=== PATIENT | male | born 1955 | race Caucasian/White ===

== ENCOUNTER 2023-05-29 06:39 | Observation (INO) ==
--- NOTE | 2023-05-02 11:19 | PAT Medication Instructions ---
Medication Instructions Date of Service May 02, 2023 Home Medications Liposomal Vitamin D 125 mcg PO QAM Nac 1,000 mg PO HS chromium picolinate 200 mcg tablet 200 mcg PO QAM glycine 500 mg capsule 1,000 mg PO QAM hydrochlorothiazide 12.5 mg tablet 12.5 mg PO QAM STOP taking 2 weeks before surgery Liposomal Vitamin D 125 mcg PO QAM Nac 1,000 mg PO HS chromium picolinate 200 mcg tablet 200 mcg PO QAM glycine 500 mg capsule 1,000 mg PO QAM DO NOT take the morning of surgery hydrochlorothiazide 12.5 mg tablet 12.5 mg PO QAM OTHERWISE NOTHING TO EAT OR DRINK AFTER MIDNIGHT ' Other Notes If you have any questions please call us at [phone] or [phone] or [phone] or [phone]
--- NOTE | 2023-05-07 10:22 | Anesthesiology Consultation ---
Date of Service May 07, 2023 Assessment & Plan (1) Encounter for pre-operative examination: Plan - Outpatient joint assessment: Patient is currently scheduled for inpatient pathway. If re-evaluated and patient/surgeon requests outpatient pathway, patient is acceptable candidate for outpatient joint program from anesthesia standpoint pending surgeon's office assessment of pt motivation/support/completion of same day joint program preop requirements. Chart Review Chart Review: Acceptable Risk for Surgery and Patient seen in Pre Admission Testing Teaching & Discussion Pre-Anesthesia Teaching/Discussion Notes: Instructed NPO after midnight before surgery, except medications with 15 cc of water. Medication instructions provided according to the PAT guidelines. History Surgery Operation Date: 05/29/23 07:00 Proposed Procedures p Right Total Knee Arthroplasty - Ben Calle MD Height/Weight Height: 5 ft 11 in Weight: 98.6 kg Allergies Allergy/AdvReac Type Severity Reaction Status Date / Time No Known Allergies Allergy Verified 04/24/23 14:17 Medications Home Medications Medication Instructions Recorded Confirmed Last Taken Liposomal Vitamin D 125 mcg PO QAM 04/24/23 04/24/23 Unknown Nac 1,000 mg PO HS 04/24/23 04/24/23 Unknown chromium picolinate 200 mcg tablet 200 mcg PO QAM 04/24/23 04/24/23 Unknown glycine 500 mg capsule 1,000 mg PO QAM 04/24/23 04/24/23 Unknown hydrochlorothiazide 12.5 mg tablet 12.5 mg PO QAM 04/24/23 04/24/23 Unknown Past Medical History Medical History Disorder of left rotator cuff Hypertension controlled, stable per pt Patient denies h/o stroke, seizures, heart attack, heart failure, DM, blood clots/DVTs or blood transfusions. Exercise / Class Metabolic Activity II 4-5 Yardwork/Stairs/Walk up hill (denies chest discomfort or shortness of breath with 1 FOS) Past Family History Family History Other No family history of adverse response to anesthesia Past Surgical History Surgical History History of colonoscopy History of foot surgery left--tendon repair Past Anesthesia History No Hx of Anesthesia Complications and No Family Hx of Anesthesia Complications History of PONV No Hx of PONV and No Hx of Motion Sickness Social History Smoking Status: Never smoker Do You Dip or Chew Tobacco: No Hx Alcohol Use: Yes (on the weekends) Alcohol type: beer alcohol intake frequency: a few times a week Hx Substance Use: No substance use type: does not use Review of Systems Patient denies chest pain, shortness of breath, dyspnea on exertion, snoring, witnessed apneas, reflux, fever, chills, cough, wheezing, or palpitations. Physical Exam Vital Signs Vitals BP 147/92 P 60 TEMP 98 SP02 97% on RA RESP 18 Physical Patient resting comfortably in chair in no acute distress, alert and oriented, responding appropriately throughout visit Full cervical extension range of motion without pain TMD 3.5 finger breadths Mallampati Score 2 Dentition: intact, denies chipped or loose teeth, caps/crowns, implants or bridges Lungs: normal respiratory effort. Good air movement, clear throughout to auscultation, no adventitious breath sounds Cardiac: regular rate and rhythm, no murmurs noted Carotid arteries: negative bruit bilat Lab Results Anesthesia Preop Results Results Anesthesia Widget: WBC 5.69 K/ul (4.8-10.8) 05/07/23 Hgb 15.9 g/dl (14.0-18.0) 05/07/23 Hct 46.2 % (42.0-52.0) 05/07/23 Plt 222 K/uL (130-400) 05/07/23 Na 139 mmol/L (136-145) 05/07/23 K 4.4 mmol/L (3.5-5.1) 05/07/23 Cl 103 mmol/L (98-107) 05/07/23 CO2 29 mmol/L (21-32) 05/07/23 BUN 16 mg/dl (6-23) 05/07/23 Creat 0.95 mg/dl (0.6-1.4) 05/07/23 Glucose Level 110 mg/dl (70-99(Fasting)) H 05/07/23 PT 10.7 Seconds (9.0-12.0) 05/07/23 PTT 29 Seconds (21-31) 05/07/23 INR 1.0 (0.9-1.1) 05/07/23 Blood Type O Positive 05/07/23 Antibody Screen NEGATIVE 05/07/23 Testing Electrocardiogram Date: 05/07/23 NSR with sinus arrhythmia, rate 65 bpm Rightward axis Chest X-Ray Date: 02/06/23 No acute cardiopulmonary process.
--- NOTE | 2023-05-25 14:20 | History & Physical Report ---
Date of Service May 25, 2023 Assessment & Plan (1) Right knee DJD: 67-year-old gentleman with advanced bilateral knee arthritis. He is failed conservative treatment. He would like to proceed with definitive treatment. Plan: Gino taken to the operating do a right total knee replacement. Cement explained the patient clued but not limited to DVT PE infection neurological injury vascular bleeding palm pain limb range of motion stiffness fairly with symptoms incomplete relief of symptoms excetra. Patient understands and desires to proceed. Informed consent was obtained to. As far as discharge plans he is planned to be discharged home using [facility] home health program. Will use aspirin for DVT prophylaxis. (2) Left knee DJD: History of Present Illness Chief Complaint: . Bilateral knee pain discomfort right side greater than left. Primary Care Provider: NO PCP . The patient is a 67-year-old gentleman from [facility] who presents for management of his knees. Got a long several year history of gradual progressive increased pain discomfort of both knees. He has been through extensive conservative treatment initially provide at [place] and then O IP in [place] as well. He had multiple injections which become less successful over time. He has difficulty walking more than a couple blocks before he is limited by pain. The right knee is bothering more than the left. He now like to consider definitive treatment/knee replacement. Allergies Allergy/AdvReac Type Severity Reaction Status Date / Time No Known Allergies Allergy Verified 04/24/23 14:17 Home Medications Medication Instructions Recorded Confirmed Type Liposomal Vitamin D 125 mcg PO QAM 04/24/23 04/24/23 History Nac 1,000 mg PO HS 04/24/23 04/24/23 History chromium picolinate 200 mcg tablet 200 mcg PO QAM 04/24/23 04/24/23 History glycine 500 mg capsule 1,000 mg PO QAM 04/24/23 04/24/23 History hydrochlorothiazide 12.5 mg tablet 12.5 mg PO QAM 04/24/23 04/24/23 History Past Med/Surg History Medical History Hypertension controlled, stable per pt Disorder of left rotator cuff Surgical History History of colonoscopy History of foot surgery left--tendon repair Family History Other No family history of adverse response to anesthesia Social History Smoking Status: Never smoker Second Hand Exposure: No; Do You Dip or Chew Tobacco: No; Hx Alcohol Use: Yes (on the weekends) Alcohol type: beer Hx Substance Use: No Preferred Language: Spanish Communication Ability: Effective Cemetery Vault Installer Required: No Beliefs That Will Affect Care: None Current Living Situation: Other Current Living Situation Comment: Housemate/friend lives with pt Feels Safe at Home: Yes Assistive Devices: None Review of Systems All systems reviewed & are unremarkable except as noted in HPI & below. Physical Exam . Physical examination was a pleasant middle-age male. Looks in pretty good health. Examination of both knees reveals patient ambulates with a slight bit of a limp. Got varus alignment to both knees. Examination of the right knee reveals a varus alignment. Tender over the medial joint line. Range of motion is about 10 degrees show full extension about 105 degrees of flexion. Pretty stiff knee. A small knee effusion. He is no instability. No pain with hip motion. Examination left knee reveals a similar varus deformity. Small knee effusion. Range of motion about 5-1 10. No instability. No particular pain with hip motion. Constitutional WD/WN, vitals as above Neck trachea midline, no thyromegaly Respiratory normal respiratory effort, lungs clear to auscultation Cardiovascular RRR, no murmur, no edema Results & Data Results & Data Laboratory Results . Diagnostic Findings . X-rays of both knees were reviewed. She is a advanced bilateral knee DJD. 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 The right side looks a little bit more acute than the left. PG Care Time/CCT Total # of Minutes Spent Total Time Spent with Patient: Total time spent is greater than 50% in coordination of care (as documented) at patient's floor/unit and/or counseling patient: Coding Level of Care Code None Diagnoses Right knee DJD M17.11 Left knee DJD M17.12
[~2023-05-29 06:39] MED LIST: ATROPINE SULFATE 0.1 MG/ML 10ML SYR IV PRN; HYDROmorphone INJ 2 MG/ML SYR/VIAL IV PRN; ONDANSETRON INJ 2 MG/ML 2 ML VIAL IV PRN; ePHEDrine sulfate 50 MG/ML AMP IV PRN
[2023-05-29] MEDS ORDERED: BUPIVACAINE 0.5 % 5 MG/1 ML PF 10ML VIAL ONE (06:46)
[2023-05-29] MEDS ORDERED: ROPIVACAINE 0.5% 5 MG/ML 30 ML VIAL ONE (06:47)
--- NOTE | 2023-05-29 06:53 | History & Physical Bridge Note ---
Date of Service May 29, 2023 History & Physical Bridge Note I have examined the patient, reviewed the History & Physical and in the interval since the performance of the History & Physical I have noted the following changes of clinical significance: no changes noted
[2023-05-29] MEDS: ACETAMINOPHEN 500 MG TAB PO SCH ×2 (07:08→13:48)
[2023-05-29] MEDS: METOCLOPRAMIDE HCL 10 MG TABLET PO SCH (07:09)
[2023-05-29] MEDS: dexAMETHasone**PF** 10 MG/ML VIAL IV SCH (07:09)
[2023-05-29] MEDS: FAMOTIDINE 20 MG TAB PO SCH (07:09)
[2023-05-29] MEDS: LR 500ML BOLUS, THEN 15ML/HR IV SCH (07:09)
[2023-05-29] MEDS: CeleBREX 200 MG CAP PO SCH (07:09)
[2023-05-29] MEDS: Scopolamine 1 MG TDSY TD SCH (07:09)
[2023-05-29] MEDS: LR 60ML/HR IV SCH (07:10)
--- OUTSIDE RECORDS SUMMARY | 2023-05-29 08:33 | External Medical Summary | Summary of Care ---
Author Name Unknown Organization [facility] Address [address] [place] [address] Phone [phone] Care Team Providers Care Chemical Research Engineer Name Role Phone Shital Renee MD Primary Care Provider [phone] Encounter Details Date Type Department Care Team (Late st Contact Info) Description 05/28/2023 Orders Only Laboratory, [place] [address] [place] [address] Rita Mejia PA-C [address] [place] [address] Tick bite of abdomen* Allergies Active Allergy Reactions Criticality Noted Date Comments Lisinopril 03/25/2022 Back pain documented as of this encounter (statuses as of 05/29/2023) Medications Medication Sig Dispensed Refills Start Date End Date Status Glycine 500 MG Oral Packet Take 1 Tab by mouth daily. 0 04/18/2019 Active Chromium Picolinate 200 MCG CAPS Take 1 Tab by mouth daily. 0 04/18/2019 Active Multi Adult Gummies Oral Tablet Chewable Take by mouth . 0 04/29/2021 Active Vitamin C 500 MG Oral Tablet Chewable Take 1 Tablet by mouth in the morning. 30 Tablet 5 04/29/2021 Active NAC 500 MG Oral Capsule (Acetylcysteine) Take by mouth 1,000 mg . 0 04/29/2021 Active Clobetasol Propionate 0.05 % External Ointment (Temovate)Indicatio ns:Allergic dermatitis due to other chemical product Apply topically to affected area 2 times a day. To affected area for up to two weeks. 30 g 1 06/23/2022 Active Additional Information Patient not taking.Reported on 08/21/2022 hydroCHLOROthiazide 12.5 MG Oral Tablet (Hydrodiuril) Take 1 Tablet by mouth in the morning. 30 Tablet 5 04/16/2023 Active documented as of this encounter (statuses as of 05/29/2023) Active Problems Problem Noted Date Diagnosed Date Family history of colon cancer 06/22/2022 Overview: father Hypertension 04/29/2021 Family history of heart disease 04/28/2021 Family history of diabetes mellitus 04/28/2021 Sigmoid diverticulosis 05/12/2019 Overview: Colonoscopy 05/12/19 documented as of this encounter (statuses as of 05/29/2023) Resolved Problems Problem Noted Date Diagnosed Date Resolved Date Medial meniscus tear 06/26/2019 021 Overview: left-by MRI Acute iridocyclitis 04/23/19 21 Overview: OS documented as of this encounter (statuses as of 05/29/2023) Immunizations Name Administration Dates Next Due TDAP (age 10 and older)(Boostrix) 12/01/2016 documented as of this encounter Social History Tobacco Use Types Packs/Day Years Used Date Smoking Tobacco: Never Smokeless Tobacco: Never Alcohol Use Standard Drinks/Week Comments Yes 0 (1 standard drink = 0.6 oz pur e alcohol) occasioanl on weekends PHQ-2 Answer Date Recorded PHQ Adult Total Score 0 02/16/2023 Hunger Vital Sign Answer Date Recorded Within the past 12 months, y ou worried that your food would run out before you got the money to buy more. Never true 02/17/20 23 Within the past 12 months, t he food you bought just didn't last and you didn't have money to get more. Never true 02/16/2023 Sex and Gender Information Value Date Recorded Sex Assigned at Male 09/18/2019 11:28 AM EDT Gender Identity Male 09/18/2019 11:28 AM EDT Sexual Orientation Straight 09/18/2019 11 :28 AM EDT Job Start Date Occupation Industry Not on file Not on file Not on file documented as of this encounter Plan of Treatment Upcoming Encounters Date Type Department Care Team (Late st Contact Info) Description 06/29/2023 10:40 AM EDT Office Visit Family Practice, [place] [address] [place] [address] Shital Renee MD [address] [facility] [place] [id number] 07/05/2023 8:15 AM EDT Office Visit Ophthalmology, [place] [address] [place] [address] Pravin Appiah MD [address] [place] [address] Pending Results Name Type Priority Associated Diagnoses Date /Time LYME DISEASE ANTIBODY SCREEN WITH REFLEX TO CONFIRMATION Lab Routine Tick bite of abdomen 05/28/2023 9:24 AM EDT Scheduled Orders Name Type Priority Associated Diagnoses Orde r Schedule LYME DISEASE ANTIBODY SCREEN WITH REFLEX TO CONFIRMATION Lab Routine Tick bite of abdomen Expected: 05/28/2023, Expires: 05/27/2024 Scheduled Procedures Name Priority Associated Diagnoses Date/Ti me COLONOSCOPY FLEXIBLE PROXIMA L DIAGNOSTIC Recall Family history of colon cancer Health Maintenance Due Date Last Done Comments Zoster Vaccines (1 of 2) 2006 Pneumococcal Vaccine: 65+ Years (1 of 1 - PCV) 2021 COVID-19 Vaccine ( - season) 2022 Influenza Vaccine (FLU shot) (Season Ended) 2023 GFR 02/07/2024 02/06/2023, 04/09/2022, 03/03/2022, Additional history exists Depression Screening 02/17/2024 02/16/2023 COLONOSCOPY-EVERY 5 YRS AGES 18-100 05/11/2024 05/12/2019, 05/12/2019 Albumin/Creatinine Ratio 06/23/2025 06/23/2022 Diabetes Screening 02/06/2026 02/06/2023, 0 06/23/2022, 04/29/2021, Additional history exists DTaP,Tdap,and Td Vaccines (2 - Td or Tdap) 12/01/2026 12/01/2016 Lipid Panel 06/24/2027 06/23/2022, 03/0 05/2021, 04/23/2020, Additional history exists GARDASIL-HPV IMMUNIZATION SERIES Aged Out No longer eligible based on patient's age to complete this topic Hepatitis B Aged Out No longer eligi ble based on patient's age to complete this topic MENINGOCOCCAL (MENACTRA/MENVEO) Aged Out No longer eligible based on patient's age to complete this topic documented as of this encounter Medical Devices Not on filedocumented as of this encounter Visit Diagnoses Diagnosis Tick bite of abdomen- Primary Trunk, insect bite, nonvenomous, without mention of infection documented in this encounter Care Teams Chemical Research Engineer Relationship Specialty Start Date End Date Shital Renee MD [address] [place] [id number] PCP - General Family Medicine 06/26/19 documented as of this encounter
--- OUTSIDE RECORDS SUMMARY | 2023-05-29 08:33 | External Medical Summary | Summary of Care ---
Author Name Unknown Organization [facility] Address [address] [place] [address] Phone [phone] Care Team Providers Care College Administrator Name Role Phone Shital Renee MD Primary Care Provider [phone] Reason for Visit * Reason Comments Outpatient Testing Encounter Details Date Type Department Care Team (Late st Contact Info) Description 05/28/2023 3:20 PM EDT Laboratory Laboratory, [place] [address] [facility] [address] [place] [address] [place], [facility] [address] [facility] [address] [place] [address] Tick bite of abdomen Allergies Active Allergy Reactions Criticality Noted Date Comments Lisinopril 03/25/2022 Back pain documented as of this encounter (statuses as of 05/28/2023) Medications Medication Sig Dispensed Refills Start Date [...] as of this encounter (statuses as of 05/28/2023) Active Problems Problem Noted Date Diagnosed Date Family history of colon cancer 06/22/2022 Overview: father Hypertension 04/29/2021 Family history of heart disease 04/28/2021 Family history of diabetes mellitus 04/28/2021 Sigmoid diverticulosis 05/12/2019 Overview: Colonoscopy 05/12/19 documented as of this encounter (statuses as of 05/28/2023) Resolved Problems Problem Noted Date Diagnosed Date Resolved Date Medial meniscus tear 06/26/2019 021 Overview: left-by MRI Acute iridocyclitis 04/23/19 21 Overview: OS documented as of this encounter (statuses as of 05/28/2023) Immunizations Name Administration Dates Next Due TDAP [...] 10:40 AM EDT Office Visit Family Practice, [place] [address] [place] [address] Shital Renee MD [address] [place] [id number] 07/05/2023 8:15 AM EDT Office Visit Ophthalmology, [place] [address] [facility] [place], [place] [id number] Pravin Appiah MD [address] [place] [address] Pending Results Name Type Priority Associated Diagnoses Date /Time LYME DISEASE ANTIBODY SCREEN WITH REFLEX TO CONFIRMATION Lab Routine Tick bite of abdomen 05/28/2023 9:24 AM EDT LYME DISEASE ANTIBODY SCREEN Lab Routine Tick bite of abdomen 05/28/2023 9:24 AM EDT Scheduled Procedures Name Priority Associated Diagnoses Date/Ti me COLONOSCOPY FLEXIBLE PROXIMA L DIAGNOSTIC Recall Family history of colon cancer Health Maintenance Due Date Last Done Comments Zoster Vaccines (1 of 2) 2006 Pneumococcal Vaccine: 65+ Years (1 of 1 - PCV) 2021 COVID-19 Vaccine ( - 2022- season) 2022 Influenza Vaccine (FLU shot) (Season Ended) 2023 GFR 02/07/2024 02/06/2023, 04/2 09/2022, 03/03/2022, Additional history exists Depression Screening 02/17/2024 [...] encounter Visit Diagnoses Diagnosis Tick bite of abdomen Trunk, insect bite, nonvenomous, without mention of infection documented in this encounter Care Teams College Administrator Relationship Specialty Start Date End Date Shital Renee MD [address] [facility] [place] [id number] PCP - General Family Medicine 06/26/19 documented as of this encounter
[2023-05-29] MEDS ORDERED: MIDAZOLAM HCL 1 MG/ML 2ML VIAL ONE (08:48)
[2023-05-29] MEDS ORDERED: fentaNYL citrate PF 100 MCG/2 ML VIAL ONE (08:49)
[2023-05-29] MEDS: ceFAZolin 2000MG 2,000 MG/15 ML SYR IV SCH ×2 (09:32→17:04)
[2023-05-29] MEDS: ORTHO JOINT ANESTHETIC ONE (10:04)
[2023-05-29] MEDS: TRANEXAMIC ACID 1,000 MG **IV Intra-op IV SCH (10:37)
[2023-05-29] MEDS: ROPIV 0.5% 246mg, Ketorolac 30mg, EPINEPHrine 0.5mg in NSS INFIL SCH (10:59)
[2023-05-29] MEDS ORDERED: LIDOCAINE 2% 2 ML VIAL/AMP(20MG/ML) INFIL ONE (11:17)
[2023-05-29] MEDS ORDERED: PROPOFOL IV EMULSION 10 MG/ML 20 ML VIAL IV ONE (11:17)
--- NOTE | 2023-05-29 11:36 | Operative Report ---
PG Post Operative Report Pre & Post Diagnosis Operation Date: 05/29/23 08:50 Pre-Op Diagnosis: Right Knee Degenerative Joint Disease Post-Op Diagnosis: Right Knee Degenerative Joint Disease I identified the patient and participated in the time-out.: Yes Procedure Operation Date: 05/29/23 08:50 Actual Procedures p Right Total Knee Arthroplasty(Right) - Ben Calle MD Surgeon Ben Calle MD School Crossing Guard Supervisor Lucian Ball PA-C Estimated Blood Loss 50 Findings Consistent with Post-Op Diagnosis Operative findings revealed extensive grade 4 yjcw-fa-ejld disease of the anteromedial compartment. Here moderate-sized joint effusion with a slight varus deformity to his knee. Fairly well-preserved lateral compartment. Some moderate degenerative changes in the patellofemoral compartment. Specimens Right knee sent for pathology. Anesthesia Type Spinal MAC Complications none Disposition Accompanied Patient To Recovery: No Indications Patient is a 67-year-old gentleman with a long history of bilateral knee pain and discomfort is gotten worse over time. Is been through extensive conservative treatments became less successful. Pains become more debilitating limiting his activities. X-rays show advanced bilateral knee arthritis. He elects proceed with right total knee arthroplasty. Description of Procedure Operative implants consist of: 1 Biomet Vanguard size 70 right posterior stabilized femoral component. 2. Biomet size 75 tibial tray. 3. 14 mm posterior stabilized polyethylene insert. 4. 31 x 8 all poly patella. The patient was taken the operating, identified, placed on the operating table in the supine position. All contact areas were appropriately padded. IV antibiotic 5 by anesthesia team. A spinal anesthetic and abductor canal block had been provided in the holding area. A right thigh tent was then placed for the right lower extremities then prepped and draped in usual sterile fashion. The right leg was elevated exsanguinated with use of an Esmarch and a turn was placed at 300 mmHg. An anterior approach to the right knee was then performed to longitudinal incision centered over the patella. Sharp dissection was carried through subcutaneous tissue down the extensor mechanism. Medial parapatellar arthrotomy incision was made. Some subperiosteal dissection was carried out medially. The fat pad was resected from Neath patella tendon. The lateral patellofemoral ligament was released. Patella subluxated laterally and the knee was flexed. The osteophyte taken off the distal femur. The ACL and PCL were then released in the distal femur. The tibia subluxated anteriorly. The external treatment line jig was then placed the interface the tibia and adjusted 14 mm medially. Proximal tibial cut was made remove about a millimeter bone from the most deficient aspect medial tibial plateau. Tibia sized to a size 75. Attention drawn the femur. The distal femur was then with a sharp drill. Intramedullary canal was suction. A right 6 degree valgus cutting guide was placed. The distal femoral cutting block was pinned in place. Distal femoral cut was made to take an additional 3 mm of bone off distal femur. The femur was then sized to a size 70. The AP cutting block was pinned parallel to the epicondylar axis which was 3 degrees of external rotation. The anterior cut, anterior chamfer, posterior cut, posterior chamfer cuts were made. The box cutting guide was placed in the just slight lateral and the box cut was made. The knee was flexed. The remnants of the medial and lateral menisci were excised. The osteophytes were taken off the posterior aspect of femur. A trial femoral component was placed. The tibial tray was pinned Maria external rotation and the drill and stem punch used to c reate defect in the proximal tibia for the tibial tray. Knee was then trialed and the 14 mm insert fit most appropriately. Attention drawn the patella. The patella was cleaned of all soft tissues. Patella thickness measured 18 mm in thickness was cut down to 12. Was sized to a size 31 patella. The lug holes were drilled for 31 patella. The lateral osteophyte was removed. Patella button was placed. Knee was taken through range of motion and the patella tracked nicely with no thumbs test. Attention drawn to placing the permanent components. All trial components were removed. Bone plug was placed into the distal femur limit blood loss. A double batch Palacos G cement was mixed. A Biomet Vanguard size 70 right posterior stabilized femoral component, a size 75 tibial tray, a 14 mm posterior stabilized insert, and a 31 x 8 all poly patella then cemented in place. The knee was brought out into full extension till cement hardened. Final cement check was then performed. Pericapsular tissues were injected with total of 100 cc of orthopedic joint mix. The patient did receive 1 g tranexamic acid. The tourniquet was then let down for final tourniquet time was 65 minutes. Hemostasis assured use electrocautery. Extensor Meclomen closed with combination 1 PDS suture #1 Vicryl suture in a [id number]-au-wsdyy fashion. Extensor Meclomen checked found to be intact and subcutaneous tissues then closed with 2 Dexon suture in a buried interrupted fashion skin was closed skin marko. Leg was then cleaned and dried and sterile dressing was Xeroform, 4 fours, sterile cast padding, ABD pad, Brary bandage were applied. The patient was then transferred to the recovery room in stable condition. Patient tolerated the procedure well and there were no complications. Ryan Ball, my physician respiratory equipment assistant, was present for the entire procedure. His assistance was required for proper patient positioning, prepping and draping, surgical exposure, retraction, perform the technical details of the operation, placement of hardware, closure of the incision site and placement of sterile bandage. I attest to the content of the Intraoperative Record and any orders documented therein. Any exceptions are noted below.
--- NOTE | 2023-05-29 11:52 | Anesthesiology Progress Note ---
Date of Service May 29, 2023 Anesthesia Post Procedure Vital Signs Vital Signs: Temp Pulse Resp BP Pulse Ox O2 Del Method 05/29/23 06:55 36.4 C L 101 H 18 132/84 95 Room Air Transfer of Care Handoff Completed per policy Notes Mental Status: alert / awake / arousable and participated in evaluation Nausea / Vomiting: adequately controlled Pain: adequately controlled Airway Patency, RR, SpO2: stable & adequate BP & HR: stable & adequate Hydration State: stable & adequate Neuraxial Anesthesia: was administered and sensory block is resolving Anesthetic Complications: no major complications apparent and Pt Satisfied with anesthetic care
--- NOTE | 2023-05-29 12:23 | XRay Report ---
XR knee RT 1 or 2V routine CLINICAL HISTORY: Postoperative evaluation. COMPARISON: Right knee radiographs April 06, 2023. FINDINGS: Alignment of the total right knee arthroplasty is anatomic. There is no periprosthetic fra cture or unexpected radiopaque foreign body. There are skin marko. IMPRESSION: Expected findings following right knee arthroplasty. ACT 112: Negative or not required by law. Electronically signed by: Garry Robles M.D. 05/29/2023 12:22 PM
[2023-05-29] MEDS ORDERED: ONDANSETRON INJ 2 MG/ML 2 ML VIAL IV PRN (12:25)
[2023-05-29] MEDS ORDERED: bisacodyL 10 MG SUPP PR PRN (12:25)
[2023-05-29] MEDS ORDERED: METOCLOPRAMIDE HCL INJ 5 MG/ML 2 ML VIAL IV PRN (12:25)
[2023-05-29] MEDS ORDERED: HYDROmorphone INJ 0.5 MG/0.5 ML SYR IV PRN (12:25)
[2023-05-29] MEDS ORDERED: MAGNESIUM HYDROXIDE SUSP 30 ML UDC PO PRN (12:25)
[2023-05-29] MEDS ORDERED: NALOXONE HCL 0.4 MG/1 ML VIAL/CARP IV PRN (12:25)
[2023-05-29] MEDS ORDERED: ALUMINUM/MAGNESIUM SUSP 30 ML UDC PO PRN (12:25)
[2023-05-29] MEDS ORDERED: oxyCODONE HCL IR 5 MG TAB (IMMEDIATE RELEASE) PO PRN (12:25)
[2023-05-29] MEDS: KETOROLAC TROMETHAMINE 15 MG/ML VIAL IV SCH (13:48)
[2023-05-29] MEDS: SODIUM CHLORIDE 0.9% 1,000 ML IV SCH (13:48)
[2023-05-29] MEDS: ASCORBIC ACID 500 MG TAB PO SCH (17:03)
[2023-05-29] MEDS: TRANEXAMIC ACID / 0.7% NACL 1,000 MG/100 ML BAG IV SCH (17:03)
[2023-05-29] MEDS: Scopolamine CHECK PATCH PLACEMENT SCH (17:21)
[2023-05-29] MEDS ORDERED: NAC PO SCH (21:00)
[2023-05-29] MEDS ORDERED: SENNA 8.6 MG TAB PO SCH (21:00)
[2023-05-29] MEDS: SENNA 8.6 MG TAB PO SCH (21:14)
[2023-05-29] MEDS: ASPIRIN 81 MG ECTAB PO SCH (21:14)
[2023-05-29] MEDS: DOCUSATE SODIUM 100 MG CAP PO SCH (21:14)
[2023-05-30 06:22] LABS: Hematocrit (blood only) 36.2 % (42.0-52.0); Hemoglobin 12.6 g/dl (14.0-18.0); Mean Corpuscular Hemoglobin 32.9 pg (25.0-34.0); Mean Corpuscular Hgb Conc 34.8 g/dL (32.0-36.0); Mean Corpuscular Volume 94.5 fL (80.0-100.0); Mean Platelet Volume 9.7 fL (9.4-12.4); Platelet Count 187 K/uL (130-400); RDW Coefficient of Variation 13.2 % (11.5-14.5); RDW Standard Deviation 45.7 fL (36.4-46.3); Red Blood Count 3.83 M/uL (4.70-6.10); White Blood Count 11.35 K/ul (4.8-10.8)
--- OUTSIDE RECORDS SUMMARY | 2023-05-30 06:27 | External Medical Summary ---
Author Name Unknown Address Unknown Organization [id number]:LABORATORY [facility] [place] - [facility] [address] [place] [address] Laboratory Report Ordering Provider Test Date Status LEOLA KRAMER 05/28/2023 09:24:00 Final Observation Date Value Abnormality Reference (Units ) Status Borrelia burgdorferi IgG and IgM [Interpretation] in Serum by Immunoassay 05/28/2023 09:24:00 Negative Negative Final Performing Location LAB[facility]ATORY [facility] - [address] [facility] [place] [address]
--- OUTSIDE RECORDS SUMMARY | 2023-05-30 06:27 | External Medical Summary | Summary of Care ---
Author Name Unknown Organization [facility] Address [address] [place] [address] Phone [phone] Care Team Providers Care Security Assurance Analyst Name Role Phone Shital Renee MD Primary Care Provider [phone] Encounter Details Date Type Department Care Team (Late st Contact Info) Description 05/29/2023 Telephone [facility] [address] [place] [id number] Sallie Polk PA-C [address] [place] [address] Allergies Active Allergy Reactions Criticality Noted Date [...] 06/29/2023 10:40 AM EDT Office Visit Family [facility], [place] [address] [address] Shital Renee MD [address] [address] 07/05/2023 8:15 AM EDT Office Visit Ophthalmology, [place] [address] [address] Pravin Appiah MD [address] [facility] [place] [address] Scheduled Procedures Name Priority Associated Diagnoses Date/Ti me COLONOSCOPY FLEXIBLE PROXIMA L DIAGNOSTIC Recall Family history of colon cancer Health Maintenance Due Date Last Done Comments Zoster Vaccines (1 of 2) 2006 Pneumococcal Vaccine: 65+ Years (1 of 1 - PCV) 2021 COVID-19 Vaccine ( - 2022- season) 2022 Influenza Vaccine (FLU shot) (Season Ended) 2023 GFR 02/07/2024 02/06/2023, 05/28, 03/03/2022, Additional history exists Depression Screening 02/17/2024 [...] Not on filedocumented as of this encounter Care Teams Security Assurance Analyst Relationship Specialty Start Date End Date Shital Renee MD [address] [place] [address] PCP - General Family Medicine 06/26/19 documented as of this encounter
--- OUTSIDE RECORDS SUMMARY | 2023-05-30 06:27 | External Medical Summary | Summary of Care ---
Author Name Unknown Organization [facility] Address [address] [place] [address] Phone [phone] Care Team Providers Care Sound Equipment Mechanic Name Role Phone Shital Renee MD Primary Care Provider [phone] Reason for Visit * Reason Comments Outpatient Testing Encounter Details Date Type Department Care Team (Late st Contact Info) Description 05/28/2023 3:20 PM EDT Laboratory Laboratory, [place] [address] [facility] [address] [place] [address] [place], [facility] [address] [facility] [address] [place] [address] Tick bite of abdomen Allergies Active Allergy [...] 10:40 AM EDT Office Visit Family Practice, [place] [address] [place] [address] Shital Renee MD [address] [facility] [place] [phone] 07/05/2023 8:15 AM EDT Office Visit Ophthalmology, [place] [address] [facility] [place] [address] Pravin Appiah MD [address] [facility] [place], [place] [id number] Scheduled Procedures Name Priority Associated Diagnoses Date/Ti [...] Not on filedocumented as of this encounter Procedures Procedure Name Priority Date/Time Associated Diagnosis Comments LYME DISEASE ANTIBODY SCREEN Routine 05/28/2023 9:24 AM EDT Tick bite of abdomen LYME DISEASE ANTIBODY SCREEN WITH REFLEX TO CONFIRMATION Routine 05/28/2023 9:24 AM EDT Tick bite of abdomen documented in this encounter Results * LYME DISEASE ANTIBODY SCREEN (05/28/2023 9:24 AM EDT) Lyme Disease Antibody Screen Negative Negative 05/29/2023 9:21 AM EDT [facility] Blood Venous blood specimen / Unknown Venipuncture / Unknown 05/28/2023 9:24 AM EDT 05/28/2023 11:09 AM EDT Rita Mejia PA-C LAB BLOOD O [facility]DER[facility]LES [facility] [address] [place] [address] documented in this encounter Visit Diagnoses Diagnosis Tick bite of abdomen Trunk, insect bite, nonvenomous, without mention of infection documented in this encounter Care Teams Sound Equipment Mechanic Relationship Specialty Start Date End Date Shital Renee MD [address] [place] [address] PCP - General Family Medicine 06/26/19 documented as of this encounter
[2023-05-30 06:29] LABS: BUN Creatinine Ratio 23.1 (10-20); Calcium 8.2 mg/dl (8.6-10.3); Est GFR (African American) 86.3 ml/min; Est GFR (Non-African American) 74.5 ml/min; Potassium 3.7 mmol/L (3.5-5.1)
[2023-05-30] MEDS: TAMSULOSIN HCL 0.4 MG CAP PO SCH (08:24)
[2023-05-30] MEDS: MULTIVITAMIN TAB PO SCH (08:24)
[2023-05-30] MEDS: CHOLECALCIFEROL 125 MCG (5,000 UNITS) TAB PO SCH (08:24)
[2023-05-30] MEDS: hydroCHLOROthiazide 25 MG TAB PO SCH (08:25)
[2023-05-30] MEDS: dexAMETHasone 10 MG in SYRINGE 0 ML IV SCH (08:27)
--- NOTE | 2023-05-30 08:42 | Surgery Progress Note ---
Date of Service May 30, 2023 Assessment & Plan (1) Status post right knee replacement: Plan: 67-year-old gentleman postop day 1 from right knee replacement doing pretty well. Pains are reasonably well-controlled. No chest pain or shortness of breath. He is neurologically intact. Just waiting to do therapy. He is open to go home today. Plan: 1. DVT prophylaxis including thigh-high teds, SCDs, aspirin twice a day. 2. PT/OT. Weight-bear as tolerated. Right total knee protocol. 3. Pain control. Doing reasonably well without pain meds. Some quad discomfort which is to be expected. 4. Disposition. Plan is to discharge him to home if he does okay in therapy today. He is can have home health. Will follow-up in clinic in 2 weeks. Admission and Anticipated Discharge Date Admission Date: May 29, 2023 Subjective 67-year-old gentleman postop day 1 from right knee replacement. He is doing pretty well. Describes an good bit of quad soreness and that is about it. No chest pain or shortness of breath. Not feeling dizzy or lightheaded. Physical Exam Physical Exam: Physical examination was a pleasant middle-age male. He is sitting up in bed looks quite comfortable. Examination of the right leg reveals the leg to be well aligned. Dressings clean dry and intact. He can dorsiflex and plantarflex his foot appropriately. He can do a pretty good straight leg raise. Respiratory: normal respiratory effort, lungs clear to auscultation Cardiovascular: RRR, no murmur, no edema Gastrointestinal (Abdomen): normal bowel sounds, soft, nontender, no hepatosplenomegaly Results & Data Vital Signs (Past 12 Hours) Vital Signs Temp Pulse Resp BP Pulse Ox O2 Del Method 05/30/23 07:26 36.4 C L 72 16 119/68 95 Room Air 05/30/23 03:33 36.6 C 65 16 126/73 94 Room Air 05/29/23 22:58 36.6 C 54 L 16 138/78 96 Room Air Laboratory Results Hemoglobin is 12.6. Hematocrit is 36.2. Electrolytes are stable. PG Care Time/CCT Total # of Minutes Spent Total Time Spent with Patient: Total time spent is greater than 50% in coordination of care (as documented) at patient's floor/unit and/or counseling patient: Coding Level of Care Code 95044 Post Operative Follow-Up Diagnoses Status post right knee replacement Z96.651
[2023-05-30] MEDS ORDERED: GLYCINE PO SCH (09:00)
[2023-05-30] MEDS ORDERED: NON-FORMULARY MEDICATION (Chromium Picolinate 200 mcg Tablet) PO SCH (09:00)
--- NOTE | 2023-05-30 09:54 | Discharge Summary ---
Date of Service May 30, 2023 Admission HPI (Per Admitting) . The patient is a 67-year-old gentleman from [facility] who presents for management of his knees. Got a long several year history of gradual progressive increased pain discomfort of both knees. He has been through extensive conservative treatment initially provide at [place] and then O IP in [place] as well. He had multiple injections which become less successful over time. He has difficulty walking more than a couple blocks before he is limited by pain. The right knee is bothering more than the left. He now like to consider definitive treatment/knee replacement. Admission Exam (Per Admitting) . Physical examination was a pleasant middle-age male. Looks in pretty good health. Examination of both knees reveals patient ambulates with a slight bit of a limp. Got varus alignment to both knees. Examination of the right knee reveals a varus alignment. Tender over the medial joint line. Range of motion is about 10 degrees show full extension about 105 degrees of flexion. Pretty stiff knee. A small knee effusion. He is no instability. No pain with hip motion. Examination left knee reveals a similar varus deformity. Small knee effusion. Range of motion about 5-1 10. No instability. No particular pain with hip motion. Principal Diagnosis Same as "Discharge Diagnosis" noted below under Discharge Instructions. Discharge Exam Physical Exam: Physical examination was a pleasant middle-age male. He is sitting up in bed looks quite comfortable. Examination of the right leg reveals the leg to be well aligned. Dressings clean dry and intact. He can dorsiflex and plantarflex his foot appropriately. He can do a pretty good straight leg raise. Respiratory: normal respiratory effort, lungs clear to auscultation Cardiovascular: RRR, no murmur, no edema Gastrointestinal (Abdomen): normal bowel sounds, soft, nontender, no hepatosplenomegaly Discharge Data Procedures Performed Operation Date: 05/29/23 08:50 Actual Procedures p Right Total Knee Arthroplasty(Right) - Ben Calle MD Ordered Studies 05/29/23 05:00 US - OR guided needle placemen Routine Hospital Course (1) Status post right knee replacement: On May 29, 2023 Endy arrived at [facility] and underwent a right total knee arthroplasty performed by Dr. Calle with no complications. He had a spinal anesthetic. Postoperatively, he was started on aspirin for DVT prophylaxis and transferred to the general orthopedic floor in stable condition. His hospital course was uneventful. On postoperative day #1, his vital signs were stable and his pain was well-controlled. He participated well with physical therapy working on ambulation and range of motion exercises. He was then discharged home in stable condition. He will follow-up with Dr. Calle in 2 weeks for postoperative management. PG Care Time/CCT Total # of Minutes Spent Total Time Spent with Patient: Total time spent is greater than 50% in coordination of care (as documented) at patient's floor/unit and/or counseling patient: Discharge Plan Discharge Items Patient Disposition: Home - Home Health Services Reason For Visit: Right Knee Degenerative Joint Disease Discharge Diagnosis: Right Knee Replacement Activity: Per Instructions section Weightbearing: Full weightbearing Non-emergency contact: Surgeon Call non-emergency contact if: you have any medication questions Follow-up/Referrals: Shital Renee MD [Primary Care Provider] - Diet: Regular Addtl Attending Provider Instructions: ACTIVITY RECOMMENDATIONS: Physical Therapy: * You will go to physical therapy three times each week for four to six weeks after your surgery in order to regain your knee range of motion and to retrain your knee to work properly. * It is just as important to make sure you are getting your knee perfectly straight as it is to regain your knee bend. * Taking a pain pill an hour before therapy can help you have a more productive and comfortable therapy session. Home Exercise: * You were shown a series of exercises (heel props, heel slides, etc.) in the hospital. Do these exercises three to four times each day including the exercises you were shown in physical therapy. Walking: * Get up and walk several times each day. For the first four weeks, try not to stand or walk for more than one hour at a time. If you do stand or walk for more than one hour, you will not hurt anything, but your knee and leg will likely swell. * As you feel comfortable, you may change from the walker or crutches to a cane and then to independent walking. MEDICATIONS: New Medicine: * You will likely be taking one or more of these medications: 1. Oxycodone - A quick and shorter-acting pain medication. Take one to two tablets every six hours to lessen your pain. 2. Aspirin - Thins your blood to lessen the chance of forming a blood clot. * The most common side effects of pain medicine and iron are nausea and constipation. If nausea or constipation is too much of a problem or if you have any questions about your new medicines or doses, call [facility] at . We will try to help you manage these issues. "VERY IMPORTANT TO READ AND REVIEW" Pain: * The immediate post-operative period after knee replacement surgery is often quite painful. * You are given a prescription for pain medicine. You should take it, as directed, when you need it, especially before physical therapy and before going to bed. Pain that interferes with sleep is very common and can last several months. * You will likely need pain medicine for the first four to six weeks. It will not stop all of the pain. The pain will lessen and as you feel better, you may change to milder pain medicine such as Tylenol. * The most common side effects of pain medicine are nausea and constipation, so don't take more than you need. SPECIAL CARE INSTRUCTIONS: TEDs/Elastic Stockings: * The white elastic stockings help limit swelling and prevent blood clots from forming in your legs. The more you wear them, the more they work. * Wear them for six weeks after knee replacement surgery and four weeks after partial knee replacement. Incision Site Care: * Remove dressing postoperative day 2 and then shower. Keep direct shower pressure off the incision site. * After showering, cover marko with dry gauze and change daily or more frequently if the dressing is getting saturated with drainage. * Use the ENEIDA stockings to hold dressing in place. DO NOT apply tape on the skin. * May completely stop using bandage if wound is dry and no drainage * Marko are removed between 2 and 3 weeks post-op. If your follow-up appointment is made before 2 weeks, please have your appointment re- scheduled. It is too early to remove the marko. Prevention of Infection: * Take antibiotics one hour before any dental cleaning, dental work, urological procedure, gastrointestinal procedure or any invasive surgery in order to prevent your new joint from getting infected. * You may get the antibiotics from the doctor performing the procedure or you may call our office at [phone] before and we will call in a prescription to the pharmacy of your choice. Things to Watch For: * Drainage from the incision site that occurs more than one week after your surgery. * Severely increased knee/leg pain or swelling. * Increased redness at the incision site. * Fever above 102 degrees Fahrenheit. * Unusual chest pain or shortness of breath. * Unusual pain or burning with urination. Call [facility] at [phone] with any of the above problems or if you have any questions about your medicines or recovery. FOLLOW UP VISIT: Make an appointment to see your doctor for approximately two weeks after surgery for a progress check and staple removal by calling the office at [phone]. Pending Studies at Discharge: No Stand-Alone Forms: My [facility] [id number], Smoking Cessation Medications and DC Order Prescriptions: Continued oxycodone 5 mg tablet 5 - 10 mg PO Q6 PRN (Reason: pain) Qty: 40 0RF Rx Instructions: Take as needed for pain ondansetron 4 mg tablet,disintegrating 4 mg PO Q8 PRN (Reason: nausea) Qty: 20 1RF Rx Instructions: Take as needed for nausea ketorolac 10 mg tablet 10 mg PO Q6 5 Days Qty: 20 0RF Rx Instructions: Take 4 times per day with food for 5 days to lessen pain and swelling. sennosides [Senokot] 8.6 mg tablet 8.6 mg PO BID 14 Days Qty: 28 0RF Rx Instructions: Take two times a day to prevent/treat constipation acetaminophen [Tylenol Extra Strength] 500 mg tablet 1,000 mg PO TID 30 Days Qty: 180 0RF Rx Instructions: Take 3 times per day to lessen pain. aspirin [Lorenza Low Dose Aspirin] 81 mg tablet,delayed release (DR/EC) 81 mg PO BID 45 Days Qty: 90 0RF Rx Instructions: Take to prevent blood clots. cefadroxil 500 mg capsule 500 mg PO BID 7 Days Qty: 14 0RF Rx Instructions: Take 1 cap twice a day to prevent infection tamsulosin [Flomax] 0.4 mg capsule 0.4 mg PO DAILY Qty: 7 0RF Rx Instructions: Begin night BEFORE surgery to prevent urinary retention (DME) Wheeled Walker Misc See Rx Instructions .MEDSUPPLY Qty: 1 0RF Rx Instructions: As directed hydrochlorothiazide 12.5 mg Tablet 12.5 mg PO QAM Nac 1,000 mg PO HS chromium picolinate 200 mcg Tablet 200 mcg PO QAM glycine 500 mg Capsule 1,000 mg PO QAM Liposomal Vitamin D 125 mcg PO QAM Admission Data Admit Date/Time: 05/29/23 11:34 Attending Provider: Ben Calle Admit Provider: Ben Calle Primary Care Provider: Shital Renee Other Providers: [facility]
== END 2023-05-30 11:32 | disposition home health service (06) ==
LOC: ASU 06:39 → 3E 06:39

== ENCOUNTER 2023-11-27 06:24 | Observation (INO) ==
--- NOTE | 2023-11-14 11:57 | Anesthesiology Consultation ---
Date of Service November 14, 2023 Assessment & Plan Chart Review Chart Review: Acceptable Risk for Surgery Consults Requested none History Surgery Operation Date: 11/27/23 10:40 Proposed Procedures p Left Total Knee Arthroplasty - Ben Calle MD Height/Weight Height: 5 ft 11 in Weight: 98.883 kg Allergies Allergy/AdvReac Type Severity Reaction Status Date / Time No Known Allergies Allergy Verified 11/13/23 09:30 Medications Home Medications Medication Instructions Recorded Confirmed Last Taken Liposomal Vitamin D 250 mcg PO QAM 04/24/23 11/13/23 05/15/23 08:00 Nac 1,000 mg PO HS 04/24/23 11/13/23 Unknown chromium picolinate 200 mcg tablet 200 mcg PO QAM 04/24/23 11/13/23 05/15/23 08:00 glycine 500 mg capsule 1,000 mg PO QAM 04/24/23 11/13/23 05/15/23 08:00 hydrochlorothiazide 12.5 mg tablet 12.5 mg PO QAM 04/24/23 11/13/23 05/28/23 05:00 Wheeled Walker #1 ea 05/28/23 05/29/23 Unknown aspirin 81 mg tablet,delayed 81 mg PO QAM 11/13/23 11/13/23 Unknown release (Lorenza Low Dose Aspirin) Past Medical History Medical History Hypertension controlled, stable per pt Past Family History Family History Other No family history of adverse response to anesthesia Past Surgical History Surgical History (Updated 11/13/23 @ 09:38 by Lobito Stroud RN) History of total right knee replacement (05/2023) History of colonoscopy History of foot surgery left--tendon repair Social History Smoking Status: Never smoker Do You Dip or Chew Tobacco: No Hx Alcohol Use: Yes (on the weekends) Alcohol type: beer alcohol intake frequency: a few times a week Hx Substance Use: No substance use type: does not use
--- NOTE | 2023-11-24 08:57 | History & Physical Report ---
Date of Service November 24, 2023 Assessment & Plan (1) Left knee DJD: 68-year-old gentleman now 6 months out from a right knee replacement with advanced left knee DJD. Is failed conservative measures. He is happy with his right knee and would like to have his left knee replaced. Plan: Gino taken the operating room and do a left total knee replacement but the risks Mente this procedure once again explained and he understands. He desires to proceed. He is hoping to have home health come in for the first 2 weeks. After that he thinks he can do therapy on his own as he wants to save the cost. Will use aspirin for DVT prophylaxis. He does admit himself that he is friends around they can help him and he did so last time he did fine. Will follow back with me. Postop. (2) Status post right knee replacement: History of Present Illness Chief Complaint: . Persistent, progressive left knee pain and discomfort. Primary Care Provider: Shital Renee MD . The patient is a 68-year-old gentleman whose had a long history of bilateral knee problems and knee pain. He is now 6 months out from a right knee replacement which was done well. He continues to be bothered by left knee pain and discomfort and stiffness. He has been through extensive conservative treatment for his knee arthritis that [facility] and [place] in the past. Conservative care has become less successful over time. His right knee is doing well. He is now like to proceed with left knee replacement. Allergies Allergy/AdvReac Type Severity Reaction Status Date / Time No Known Allergies Allergy Verified 11/13/23 09:30 Home Medications Medication Instructions Recorded Confirmed Type Liposomal Vitamin D 250 mcg PO QAM 04/24/23 11/13/23 History Nac 1,000 mg PO HS 04/24/23 11/13/23 History chromium picolinate 200 mcg tablet 200 mcg PO QAM 04/24/23 11/13/23 History glycine 500 mg capsule 1,000 mg PO QAM 04/24/23 11/13/23 History hydrochlorothiazide 12.5 mg tablet 12.5 mg PO QAM 04/24/23 11/13/23 History Wheeled Walker #1 ea 05/28/23 05/29/23 Rx aspirin 81 mg tablet,delayed 81 mg PO QAM 11/13/23 11/13/23 History release (Lorenza Low Dose Aspirin) Past Med/Surg History Problem List Status post right knee replacement Effusion, left knee Disorder of left rotator cuff Left knee DJD Medical History Hypertension controlled, stable per pt Surgical History History of total right knee replacement (05/2023) History of colonoscopy History of foot surgery left--tendon repair Family History Other No family history of adverse response to anesthesia Social History Smoking Status: Never smoker Second Hand Exposure: No; Do You Dip or Chew Tobacco: No; Hx Alcohol Use: Yes (on the weekends) Alcohol type: beer Hx Substance Use: No Preferred Language: Belarusian Communication Ability: Effective Director Of Institutional Sales Required: No Beliefs That Will Affect Care: None Current Living Situation: Alone Current Living Situation Comment: Housemate/friend lives with pt Feels Safe at Home: Yes Assistive Devices: None Review of Systems All systems reviewed & are unremarkable except as noted in HPI & below. Physical Exam . Physical examination reveals a pleasant middle-aged male. Looks to be in excellent health. Examination of the left knee reveals slight varus alignment. He is tender with medial joint line. Small knee effusion. Range of motion ab out 5 degrees short of full extension to 105 degrees of flexion. No particular pain with hip motion. No instability. Examination of the right knee reveals a well-healed incision. He is got anatomi c alignment to his knee. Range of motion 0-1 25. Constitutional WD/WN, vitals as above Neck trachea midline, no thyromegaly Respiratory normal respiratory effort, lungs clear to auscultation Cardiovascular RRR, no murmur, no edema Gastrointestinal (Abdomen) normal bowel sounds, soft, nontender, no hepatosplenomegaly Results & Data Results & Data Laboratory Results . Diagnostic Findings . X-rays of the left knee were reviewed. Shows advanced left knee DJD. He is got complete loss of medial joint space. 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 PG Care Time/CCT Total # of Minutes Spent Total Time Spent with Patient: Total time spent is greater than 50% in coordination of care (as documented) at patient's floor/unit and/or counseling patient: Coding Level of Care Code None Diagnoses Left knee DJD M17.12 Status post right knee replacement Z96.651
[2023-11-27] MEDS ORDERED: ROPIVACAINE 0.5% 5 MG/ML 30 ML VIAL ONE (06:29)
--- NOTE | 2023-11-27 06:41 | History & Physical Bridge Note ---
Date of Service November 27, 2023 History & Physical Bridge Note I have examined the patient, reviewed the History & Physical and in the interval since the performance of the History & Physical I have noted the following changes of clinical significance: no changes noted
[2023-11-27] MEDS: LR 500ML BOLUS, THEN 15ML/HR IV SCH (06:45)
[2023-11-27] MEDS: dexAMETHasone**PF** 10 MG/ML VIAL ONE (06:56)
[2023-11-27] MEDS: LR 60ML/HR IV SCH (06:56)
[2023-11-27] MEDS: CeleBREX 200 MG CAP PO SCH (07:10)
[2023-11-27] MEDS: ACETAMINOPHEN 500 MG TAB PO SCH ×2 (07:10→13:53)
[2023-11-27] MEDS: FAMOTIDINE 20 MG TAB PO SCH (07:10)
[2023-11-27] MEDS: METOCLOPRAMIDE HCL 10 MG TABLET PO SCH (07:10)
[2023-11-27] MEDS: DEXAMETHASONE SOD INJ 4 MG/ML VIAL IV STA (07:14)
[2023-11-27] MEDS ORDERED: fentaNYL citrate PF 100 MCG/2 ML VIAL ONE (07:25)
[2023-11-27] MEDS ORDERED: fentaNYL citrate PF 100 MCG/2 ML VIAL IV PRN (07:26)
[2023-11-27] MEDS ORDERED: HYDROmorphone INJ 1 MG/ML SYRINGE IV PRN (07:26)
[2023-11-27] MEDS ORDERED: MIDAZOLAM HCL 1 MG/ML 2ML VIAL ONE (07:26)
[2023-11-27] MEDS ORDERED: ATROPINE SULFATE 0.1 MG/ML 10ML SYR IV PRN (07:26)
[2023-11-27] MEDS ORDERED: ONDANSETRON INJ 2 MG/ML 2 ML VIAL IV PRN ×2 (07:26→11:26)
[2023-11-27] MEDS ORDERED: ePHEDrine sulfate 50 MG/ML AMP IV PRN (07:26)
[2023-11-27] MEDS: ceFAZolin 2000MG 2,000 MG/15 ML SYR IV SCH ×2 (08:39→16:56)
[2023-11-27] MEDS ORDERED: PROPOFOL IV EMULSION 10 MG/ML 20 ML VIAL IV ONE (09:16)
[2023-11-27] MEDS ORDERED: LIDOCAINE 2% 2 ML VIAL/AMP(20MG/ML) INFIL ONE (09:16)
[2023-11-27] MEDS: ORTHO JOINT ANESTHETIC ONE (09:26)
[2023-11-27] MEDS: ROPIV 0.5% 246mg, Ketorolac 30mg, EPINEPHrine 0.5mg in NSS INFIL SCH (09:26)
[2023-11-27] MEDS: TRANEXAMIC ACID 1,000 MG **IV Intra-op IV SCH (09:30)
--- OUTSIDE RECORDS SUMMARY | 2023-11-27 09:58 | External Medical Summary | Summary of Care ---
Author Name Unknown Organization [facility] Address [address] [place] [address] Phone [phone] Care Team Providers Care Cold Mill Operator Name Role Phone Shital Renee MD Primary Care Provider [phone] Reason for Visit * Reason Onset Date Comments Health Maintenance 11/12/2023 Encounter Details Date Type Department Care Team (Late st Contact Info) Description 11/12/2023 Telephone [facility] [address] [place] [address] Shital Renee MD [address] [place] [address] Health Maintenance Allergies Active Allergy Reactions Criticality Noted Date Comments Lisinopril 03/25/2022 Back pain documented as of this encounter (statuses as of 11/12/2023) Medications Medication Sig Dispensed Refills Start Date End Date Status Glycine 500 MG Oral Packet Take 1 Tab by mouth daily. 04/18/2019 Active Chromium Picolinate 200 MCG CAPS Take 1 Tab by mouth daily. 04/18/2019 Active Multi Adult Gummies Oral Tablet Chewable Take by mouth. 04/29/2021 Active NAC 500 MG Oral Capsule (Acetylcysteine) Take by mouth 1,000 mg . 04/29/2021 Active hydroCHLOROthiazide 12.5 MG Oral Tablet TAKE ONE TABLET BY MOUTH EVERY MORNING 30 Tablet 5 09/19/2023 Active documented as of this encounter (statuses as of 11/12/2023) Active Problems Problem Noted Date Diagnosed Date Family history of colon cancer 06/22/2022 Overview: father Hypertension 04/29/2021 Family history of heart disease 04/28/2021 Family history of diabetes mellitus 04/28/2021 Sigmoid diverticulosis 05/12/2019 Overview: Colonoscopy 05/12/19 documented as of this encounter (statuses as of 11/12/2023) Resolved Problems Problem Noted Date Diagnosed Date Resolved Date Medial meniscus tear 06/26/2019 021 Overview: left-by MRI Acute iridocyclitis 04/23/19 21 Overview: OS documented as of this encounter (statuses as of 11/12/2023) Immunizations Name Administration Dates Next Due TDAP [...] money to get more. Never true 02/16/2023 Childcare Answer Date Recorded Do you feel overwhelmed with taking care of a child, family member or friend? No 02/16/2023 Does your family need help f inding childcare? (Household - for ages 0-17 years) Not on file 02/16/2023 Clothing Answer Date Recorded Have you been unable to get clothing when it was really needed? No 02/16/2023 Is your family able to get c lothes or diapers when needed? (Household - for ages 0-17 years) Not on file 02/16/2023 Personal Safety Answer Date Recorded Do you feel unsafe or have concerns for your saf ety? No 02/16/2023 Do you have concerns for you r family's safety? (Household - for ages 0-17 years) Not on file 02/16/2023 Utilities Answer Date Recorded Do you have trouble paying y our heating, water, or electric bill? No 02/16/2023 Is your family able to pay t he heat, water, or electric bill? (Household - for ages 0-17 years) Not on file 02/16/2023 Does your family have access to good internet? (Household - for ages 0-17 years) Not on file 02/16/2023 Employment Status Answer Date Recorded Are you unemployed or without regular income? No 02/16/2023 Does the household have a re gular source of income? (Household - for ages 0-17 years) Not on file 02/16/2023 Social Connections Answer Date Recorded How often do you feel lonely or isolated from th ose around you? Never 02/16/2023 Financial Resource Strain Answer Date R ecorded Do you have any trouble payi ng for your medications, or do you think you might in the future? No 02/16/2023 Does your family have troubl e paying for medicine? (Household - for ages 0-17 years) Not on file 02/16/2023 Transportation Needs Answer Date Record ed READ ONLY Do you have troubl e getting a ride to medical visits or work? Never True 02/16/2023 Does your family have a hard time getting a ride to doctors visits? (Household - for ages 0-17 years) Not on file 02/16/2023 Has lack of transportation k ept you from medical appointments, meetings, work, or from getting things needed for daily living? Check all that apply. (Adult - for ages 18 years and over) Not on file 02/16/2023 Do you (or your family) have trouble finding or paying for a ride (transportation)? (Household - for ages 0-17 years) Not on file 02/16/2023 Housing Stability Answer Date Recorded Do you currently live in a s helter or have no steady place to sleep at night? No 02/16/2023 READ ONLY Do you think you a re at risk of becoming homeless? No 02/16/2023 Does your family worry about paying for your home or becoming homeless? (Household - for ages 0-17 years) Not on file 1 04/19/2022 Are you homeless or worried that you might be in the future? (Adult - for ages 18 years and over) Not on file 3 Are you (or your family) sesar eless or worried that you might be in the future? (Household - for ages 0-17 years) Not on file Food Insecurity Answer Date Recorded Do you need food for this week? No 02/16/2023 Are you able to get enough f ood for your family? (Household - for ages 0-17 years) Not on file 02/16/2023 Does your family need food t his week? (Household - for ages 0-17 years) Not on file 02/16/2023 Do you always have enough fo od for your family? (Household - for ages 0-17 years) Not on file 02/16/2023 Sex and Gender Information Value Date Recorded Sex Assigned at Male 09/18/2019 11:28 AM EDT Gender Identity Male 09/18/2019 11:28 AM EDT Sexual Orientation Straight 09/18/2019 11 :28 AM EDT Job Start Date Occupation Industry Not on file Not on file Not on file documented as of this encounter Miscellaneous Notes * Telephone Encounter - Sarah Holloway LPN - 11/12/2023 10:20 AM EDT Care Gaps Comprehensive Care Outreach Last Office/Telemedicine Visit: 06/29/2023 (in office), Visit date not found (telemedicine) Next Office Visit: 01/02/2024 Hemoglobin AIC Results: No results found for: "HEMOGLOBIN A1C" BP Readings from Last 1 Encounters: 09/10/23 156/96 Reviewed Health Maintenance below: Health Maintenance Topic Date Due Zoster Vaccines (1 of 2) Never done Pneumococcal Vaccine: 65+ Years (1 of 1 - PCV) Never done Adult Wellness Visit Never done Influenza Vaccine (FLU shot) (1) Never done Colorectal Cancer Screening 05/11/2024 GFR 06/28/2024 Care Gap Outreach Action Taken: Left message documented in this encounter Plan of Treatment Upcoming Encounters Date Type Department Care Team (Late st Contact Info) Description 01/02/2024 8:00 AM EST Office Visit [facility] [place] [address] [place] [address] Griselda Srivastava MD [address] [place] [address] 08/15/2024 8:00 AM EDT Office Visit [facility] [place] [address] [place] [address] Shital Renee MD [address] [place] [phone] Scheduled Procedures Name Priority Associated Diagnoses Date/Ti me COLONOSCOPY FLEXIBLE PROXIMA L DIAGNOSTIC Recall Family history of colon cancer Health Maintenance Due Date Last Done Comments Cologuard 2001 Fecal Occult Blood Test 2001 Sigmoidoscopy 2001 Zoster Vaccines (1 of 2) 2006 Pneumococcal Vaccine: 65+ Years (1 of 1 - PCV) 2021 Adult Wellness Visit 2022 COVID-19 Vaccine (1 - season) 2023 Influenza Vaccine (FLU shot) (#1) 2023 Depression Screening 02/17/2024 02/16/2023 Colonoscopy 05/11/2024 05/12/2019, 05/12/2019 Colorectal Cancer Screening 05/11/2024 GFR 06/28/2024 06/29/2023, 01/26, 06/23/2022, Additional history exists Albumin/Creatinine Ratio 06/23/2025 06/23/2022 Diabetes Screening 06/28/2026 06/29/2023, 1 04/09/2022, 06/23/2022, Additional history exists DTap/Tdap Vaccines (2 - Td or Tdap) 12/01/2026 12/01/2016 Lipid Panel 06/24/2027 06/23/2022, 05/2021, 04/23/2020, Additional history exists RETIRED - COLONOSCOPY-EVERY 5 YRS AGES 18-100 Discontinued 05/12/2019, 05/12/2019 HPV (Gardasil) Vaccine Aged Out No lo nger eligible based on patient's age to complete this topic Hepatitis B Vaccine Aged Out No longe r eligible based on patient's age to complete this topic MENINGOCOCCAL (MENACTRA/MENVEO) Aged Out No longer eligible based on patient's age to complete this topic documented as of this encounter Medical Devices Not on filedocumented as of this encounter Care Teams Cold Mill Operator Relationship Specialty Start Date End Date Shital Renee MD [address] [place] [id number] PCP - General Family Medicine 06/26/19 documented as of this encounter
--- NOTE | 2023-11-27 10:27 | Operative Report ---
PG Post Operative Report Pre & Post Diagnosis Operation Date: 11/27/23 08:50 Pre-Op Diagnosis: Left Knee Degenerative Joint Disease Post-Op Diagnosis: Left Knee Degenerative Joint Disease I identified the patient and participated in the time-out.: Yes Procedure Operation Date: 11/27/23 08:50 Actual Procedures p Left Total Knee Arthroplasty, Cemented(Left) - Ben Calle MD Surgeon Ben Calle MD Snow Shoveler Mratinez Farr PA-C Estimated Blood Loss 50 Findings Consistent with Post-Op Diagnosis Specimens Left knee sent for pathology. Anesthesia Type Spinal MAC Complications none Disposition Accompanied Patient To Recovery: No Indications Patient is 68-year-old gentleman is had a long history of bilateral knee pain discomfort is. Gradual gotten worse over time. He failed conservative measures. He had his right knee replaced about 6 months ago and done well from this. Continue to be limited by left knee pain discomfort. He elected proceed with total knee arthroplasty. Description of Procedure Operative implants consist of: 1 Biomet Vanguard size 70 left posterior stabilized femoral component. 2. Biomet size 79 tibial tray. 3. 12 mm posterior stabilized polyethylene insert. 4. 31 x 8 all poly patella. The patient was taken the operating, identified, placed on the operating table in the supine position. Contact areas were appropriately padded. IV antibio tics tried by the anesthesia team. Spinal anesthetic and adductor canal block had been provided in the holding area. A left thigh tourniquet was then placed to the left lower extremities then prepped and draped in usual sterile fashion. The left leg was elevated exsanguinated with use of an Esmarch and turn was placed at 300 mmHg. An anterior approach to the left knee was then performed to longitudinal incision centered over the patella. Sharp dissection was Through subcutaneous tissue down the extensor mechanism. A medial parapatellar arthrotomy incision was made. Some subperiosteal dissection was carried medially. The fat pad was dissected from Neath patella tendon. The lateral patellofemoral ligament was released. Patella was subluxated laterally and the knee was flexed. The osteophytes taken off distal femur. The ACL and PCL were then released from distal femur the tibia subluxate anteriorly. The external tibial alignment jig was then placed on the interface the tibia and adjusted 14 mm medially. Proximal tibial cut was made remove about a millimeter bone from most deficient aspect medial tibial plateau. The tibia sized to a size 79. Attention drawn the femur. The distal femur examined the sharp drop with intramedullary canal was suction. A left 6 degree valgus cutting guide was placed. Distal femoral cutting block was pinned in place. This femoral cut was made to take an additional 3 mm of bone off distal femur. The femur was then sized to a size 70. The AP cutting block was pinned parallel to the epicondylar axis which was 5 degrees of external rotation. The anterior cut, anterior chamfer, posterior cut, posterior chamfer cuts were made. The box cutting guide was placed and adjust slight lateral and the box cut was made. The knee was flexed. The remnants of the medial and lateral menisci were excised. The osteophytes taken off the posterior aspect the femur. Trial femoral component was placed. Tibial tray was pinned Maria external rotation and the drill and stem punch used. Defect in proximal tibia for the tibial tray. Knee was then trialed and the 12 mm insert fit most appropriately. Attention drawn the patella. The patella is cleaned of all soft tissue. Patella thickness measured 21 mm in thickness was cut down to 13. Was sized to a size 31 patella. The lug holes were drilled for 31 patella. Lateral osteophytes removed. Patella button was placed. Knee was taken through range of motion and the patella tracked nicely with no thumbs test. Attention drawn to place the permanent components. All trial components were removed. Bone plug was placed into this femur limit blood loss. Double batch Palacos G cement was mixed. Biomet CommonKeyguard size 70 left posterior stabilized femoral component, size 79 tibial tray, 12 mm posterior stabilized polyethylene insert, 31 x 8 all poly patella then cemented in place. The knee was brought out in full extension till cement hardened. Final cement check was then performed. Pericapsular tissues were injected with total of 100 cc of a combination of Ortho mix. The patient did receive 1 g of tranexamic acid but the tourniquet was then let down for final treatment time 61 minutes. Hemostasis surges electrocautery. Extensor Meclomen closed with combination 1 PDS suture and then 1 Vicryl suture in [id number] fashion. Extensor Meclomen checked found to be intact with subcutaneous tissues then closed with 2 Dexon suture in a buried interrupted fashion skin was closed skin marko. Leg was then cleaned and dried and sterile dressing with Xeroform, 4 fours, sterile cast padding, Barry bandage were applied. Patient then transferred to the recovery room in stable condition. Patient tolerated procedure well and there were no complications. Martinez Farr, my physician senior administrative assistant, was present for the entire procedure. His assistance was essential and required for appropriate patient positioning, prepping and draping, surgical exposure, performing the technical details of the operation, placement the implants, closure of the wound, and placement of the sterile bandage. I attest to the content of the Intraoperative Record and any orders documented therein. Any exceptions are noted below.
--- NOTE | 2023-11-27 10:46 | XRay Report ---
XR knee LT 1 or 2V routine CLINICAL HISTORY: Surgical Post Op TECHNIQUE: 2 views of the left knee were obtained. Comparison: Comparison is made to knee radiographs 07/12/2023 FINDINGS: Patient is status post total knee arthroplasty with expected postsurgical changes including soft tiss ue swelling and subcutaneous emphysema. No periarticular lucency or hardware fracture is seen. IMPRESSION: Expected postoperative appearance status post placement of total knee arthroplasty. ACT 112: Negative or not required by law. Electronically signed by: Odell Dueñas M.D. 11/27/2023 10:45 AM
[2023-11-27] MEDS ORDERED: bisacodyL 10 MG SUPP PR PRN (11:26)
[2023-11-27] MEDS ORDERED: HYDROmorphone INJ 0.5 MG/0.5 ML SYR IV PRN (11:26)
[2023-11-27] MEDS ORDERED: NAC PO SCH (11:26)
[2023-11-27] MEDS ORDERED: oxyCODONE HCL IR 5 MG TAB (IMMEDIATE RELEASE) PO PRN (11:26)
[2023-11-27] MEDS ORDERED: ALUMINUM/MAGNESIUM SUSP 30 ML UDC PO PRN (11:26)
[2023-11-27] MEDS ORDERED: NALOXONE HCL 0.4 MG/1 ML VIAL/CARP IV PRN (11:26)
[2023-11-27] MEDS ORDERED: MAGNESIUM HYDROXIDE SUSP 30 ML UDC PO PRN (11:26)
[2023-11-27] MEDS ORDERED: METOCLOPRAMIDE HCL INJ 5 MG/ML 2 ML VIAL IV PRN (11:26)
[2023-11-27] MEDS: SODIUM CHLORIDE 0.9% 1,000 ML IV SCH (11:50)
--- NOTE | 2023-11-27 11:56 | Anesthesiology Progress Note ---
Date of Service November 27, 2023 Anesthesia Post Procedure Vital Signs Vital Signs: Temp Pulse Pulse Resp BP Pulse Ox O2 Del Method 11/27/23 11:33 36.6 C 87 18 149/91 H 93 Room Air 11/27/23 11:15 36.4 C L 80 14 141/93 H 95 Room Air 11/27/23 11:05 82 16 139/90 93 Room Air 11/27/23 10:55 83 17 148/92 H 95 Room Air 11/27/23 10:45 97 H 17 152/84 H 97 Oxymask 11/27/23 10:35 90 19 131/86 98 Oxymask 11/27/23 10:26 36 C L 92 H 16 119/76 94 Oxymask 11/27/23 06:56 36.6 C 70 20 153/95 H 95 Room Air O2 Flow Rate 11/27/23 11:33 11/27/23 11:15 11/27/23 11:05 11/27/23 10:55 11/27/23 10:45 5 11/27/23 10:35 5 11/27/23 10:26 5 11/27/23 06:56 Transfer of Care Handoff Completed per policy Notes Mental Status: alert / awake / arousable and participated in evaluation Patient Amnestic to Procedure: Yes Nausea / Vomiting: adequately controlled Pain: adequately controlled Airway Patency, RR, SpO2: stable & adequate BP & HR: stable & adequate Hydration State: stable & adequate Anesthetic Complications: no major complications apparent and Pt Satisfied with anesthetic care
[2023-11-27] MEDS: KETOROLAC TROMETHAMINE 15 MG/ML VIAL IV SCH (13:53)
[2023-11-27] MEDS: ASCORBIC ACID 500 MG TAB PO SCH (16:55)
[2023-11-27] MEDS: TRANEXAMIC ACID / 0.7% NACL 1,000 MG/100 ML BAG IV SCH (16:56)
[2023-11-27] MEDS ORDERED: SENNA 8.6 MG TAB PO SCH (21:00)
[2023-11-27] MEDS: DOCUSATE SODIUM 100 MG CAP PO SCH (21:20)
[2023-11-27] MEDS: SENNA 8.6 MG TAB PO SCH (21:20)
[2023-11-27] MEDS: ASPIRIN 81 MG ECTAB PO SCH (21:20)
--- NOTE | 2023-11-28 07:09 | Orthopedic Progress Note ---
Date of Service November 28, 2023 Assessment & Plan (1) Status post total left knee replacement: Doing well, pain controlled dvt prophylaxis: teds, scd's, aspirin PT/OT: wbat d/c planning: home with home health today after PT Subjective . 68 year old patient POD #1 from left tka. Doing well. Pain is minimal, says it has been better so far than his other tka in the past. Has been up and walking. Review of Systems All systems reviewed & are unremarkable except as noted in HPI & below. Physical Exam . alert and oriented. NAD VSS, slight elevated blood pressure Left knee: dressing clean, dry, intact. Able to do SLR, DF/PF, NVI Results & Data Results & Data Laboratory Results . Diagnostic Findings . PG Care Time/CCT Total # of Minutes Spent Total Time Spent with Patient: Total time spent is greater than 50% in coordination of care (as documented) at patient's floor/unit and/or counseling patient: Coding Level of Care Code 15536 Post Operative Follow-Up Diagnoses Status post total left knee replacement Z96.652
[2023-11-28] MEDS: dexAMETHasone 10 MG in SYRINGE 0 ML IV SCH (07:28)
[2023-11-28] MEDS: hydroCHLOROthiazide 25 MG TAB PO SCH (07:29)
[2023-11-28] MEDS: MULTIVITAMIN TAB PO SCH (07:29)
[2023-11-28] MEDS: TAMSULOSIN HCL 0.4 MG CAP PO SCH (07:30)
[2023-11-28 07:37] LABS: Hematocrit (blood only) 38.1 % (42.0-52.0); Hemoglobin 13.2 g/dl (14.0-18.0); Mean Corpuscular Hemoglobin 32.5 pg (25.0-34.0); Mean Corpuscular Hgb Conc 34.6 g/dL (32.0-36.0); Mean Corpuscular Volume 93.8 fL (80.0-100.0); Mean Platelet Volume 9.6 fL (9.4-12.4); Platelet Count 188 K/uL (130-400); RDW Coefficient of Variation 12.8 % (11.5-14.5); RDW Standard Deviation 43.9 fL (36.4-46.3); Red Blood Count 4.06 M/uL (4.70-6.10); White Blood Count 10.52 K/ul (4.8-10.8)
[2023-11-28 07:50] VITALS: BP 148/80; PULSE 67; RESP 18; TEMP 98.1; O2SAT 96
[2023-11-28 08:02] LABS: Calcium 8.7 mg/dl (8.6-10.3); Creatinine Clr Calc Pharmacy 72.1 ml/min; Est GFR (African American) 71.4 ml/min; Est GFR (Non-African American) 61.6 ml/min
[2023-11-28] MEDS ORDERED: NON-FORMULARY MEDICATION (Chromium Picolinate 200 mcg Tablet) PO SCH (09:00)
[2023-11-28] MEDS ORDERED: [UNRECOGNIZED DRUG - OTHER] PO SCH (09:00)
[2023-11-28] MEDS ORDERED: GLYCINE PO SCH (09:00)
--- NOTE | 2023-12-03 08:09 | Discharge Summary ---
Date of Service December 03, 2023 Discharge Data Procedures Performed Operation Date: 11/27/23 08:50 Actual Procedures p Left Total Knee Arthroplasty, Cemented(Left) - Ben Calle MD Hospital Course (1) Status post total left knee replacement: This is a 68 year old patient admitted on 11/27/23 and underwent total knee arthroplasty. He tolerated the procedure well and there were no complications. Transferred to the PACU post op and later to the orthopedic floor for further care. He was given ancef for antibiotic prophylaxis. He was also given ENEIDA stockings, SCDs, and aspirin for DVT prophylaxis. Hemoglobin, hematocrit, and vital signs were monitored during his hospital stay and remained stable. Did not require any blood transfusions. There were no complications during his hospital stay. By post op day #1 the patient was tolerating a regular diet, pain was reasonably controlled with oral pain medicine, and he was participating in physical therapy. On post op day #1 the patient was discharged home and set up with home health care. He was given printed discharge instructions including prescriptions for extra strength tylenol, aspirin, cefadroxil, ketorolac, zofran, oxycodone, senokot, and flomax. Continue physical therapy, weight bearing as tolerated. Continue ENEIDA stockings. Follow up approximately 2 weeks post op or sooner if there are problems or concerns. Coding Level of Care Code None Diagnoses Status post total left knee replacement Z96.652
== END 2023-11-28 10:47 | disposition home health service (06) ==
LOC: ASU 06:24 → 3N 06:24
DX: I10 Essential (primary) hypertension; M17.12 Unilateral primary osteoarthritis, left knee; Z79.899 Other long term (current) drug therapy; Z79.82 Long term (current) use of aspirin; Z96.651 Presence of right artificial knee joint

== ENCOUNTER 2024-08-14 01:25 | Observation (INO) ==
[2024-08-14 01:58] LABS: Basophils # (auto) 0.02 K/uL (0.00-0.20); Basophils % (auto) 0.4 %; Eosinophils # (auto) 0.17 K/uL (0.00-0.50); Eosinophils % (auto) 3.4 %; Hematocrit (blood only) 45.9 % (42.0-52.0); Hemoglobin 15.7 g/dl (14.0-18.0); Immature Granulocytes # (auto) 0.02 K/uL (0.01-0.20); Immature Granulocytes % (auto) 0.4 %; Lymphocytes # (auto) 1.22 K/uL (1.20-3.40); Lymphocytes % (auto) 24.3 %; Mean Corpuscular Hemoglobin 33.1 pg (25.0-34.0); Mean Corpuscular Hgb Conc 34.2 g/dL (32.0-36.0); Mean Corpuscular Volume 96.6 fL (80.0-100.0); Mean Platelet Volume 9.3 fL (9.4-12.4); Monocytes # (auto) 0.68 K/uL (0.11-0.59); Monocytes % (auto) 13.5 %; Neutrophils # (auto) 2.91 K/uL (1.40-6.50); Platelet Count 176 K/uL (130-400); RDW Coefficient of Variation 12.8 % (11.5-14.5); Red Blood Count 4.75 M/uL (4.70-6.10); White Blood Count 5.02 K/ul (4.8-10.8)
[2024-08-14 02:15] LABS: Albumin Globulin Ratio 1.2 (0.9-2); Albumin Level 3.9 gm/dl (3.4-5.0); BUN Creatinine Ratio 14.8 (10-20); Bilirubin,Total 0.6 mg/dl (0.2-1.0); Calcium 9.4 mg/dl (8.6-10.3); Creatinine Clr Calc Pharmacy 80.7 ml/min; Globulin 3.2 gm/dl (2.5-4.0); Total Protein 7.1 gm/dl (6.0-8.3)
[2024-08-14 02:22] LABS: Troponin I High Sensitivity 6.3 pg/ml (0-20)
[2024-08-14 02:23] LABS: Prothrombin Time 10.7 Seconds (9.0-12.0)
[2024-08-14] MEDS: ASPIRIN CHEW 324 MG PO STA (03:06)
[2024-08-14] MEDS: NITROGLYCERIN SL 0.4 MG/TAB TAB SL STA (03:06)
[2024-08-14] MEDS: ALUMINUM/MAGNESIUM SUSP 30 ML UDC PO STA (03:29)
--- NOTE | 2024-08-14 03:36 | XRay Report ---
EXAM: XR chest 1V portable CLINICAL HISTORY: Chest pain, nonspecific TECHNIQUE: Radiograph of chest was acquired. COMPARISON: none FINDINGS: The lungs are clear and well-expanded with no pulmonary infiltrate or pleural effusion. The cardiomediastinal silhouette is within normal limits. No acute osseous abnormality. IMPRESSION: 1. No acute cardiopulmonary disease. Electronically signed by Edu Wall 08-14-2024 03:36 AM
--- NOTE | 2024-08-14 03:57 | Emergency Department Note ---
Impression & Plan Chest pain, Hypertension ED Provider Note NAME: MARCO ANTONIO FUNES AGE: 68 SEX: Male INFORMANT: Patient ED PROVIDER(S): Epi Watts MD CHIEF COMPLAINT: Chest pain PLAN: Disposition: Admitted Outpatient prescription management: none Referral: None MEDICAL DECISION MAKING: Patient presented because of chest pain. He had a workup initiated. His CBC and chemistry panels were unremarkable. LFTs and cardiac troponin negative. ECG was without ischemia. Chest x-ray was negative. Patient was given additional aspirin and a dose of nitroglycerin. He notes no change with this nitroglycerin. Patient was given a dose of Maalox. Discussed further evaluation and management in the hospital given his hypertension and chest pain complaint. Patient in agreement. Consultation was made with Dr. Rocael Marcus, [facility] hospitalist service. Case discussed and diagnostics were reviewed. Patient was evaluated in the ER and admitted for further management. Care/management discussed with: application development project manager Level of care consideration(s): After review of the information above and other included data, I feel the patient requires escalation of care to admission Triage Nursing notes: reviewed and agree them. Vital Signs: reviewed and remarkable for hypertension Additional History obtained from: none Chronic Medical/Social Conditions affecting care: Hypertension Prior/ Outside/ External records reviewed: none Differential Diagnosis: Cardiac ischemia, aortic dissection, pulmonary embolism, pneumothorax, pneumonia, pericarditis, myocarditis, esophageal rupture, GERD, cholecystitis, pancreatitis, musculoskeletal, as well as other pathologies. Diagnostics, independently interpreted by me: ECG: Twelve-lead ECG reveals normal sinus rhythm with sinus arrhythmia at 70 beats per minute. No evidence of pericarditis, ischemia, ectopy, or dysrhythmia. Cardiac Monitoring: Cardiac monitoring ordered by me: The patient was placed on continuous cardiac monitoring and observed. It revealed a normal sinus rhythm at 60 beats per minute without ectopy or evidence of dysrhythmia. Medical decision rules: none Imaging studies: Chest x-ray. Findings: A chest x-ray was performed and revealed no pneumothorax, effusion, infiltrate, pulmonary edema, free air under the diaphragm, or wide mediastinum. Impression: No acute disease. HPI: 68 year old Male arrives for evaluation of chest pain. This started this evening and is persisting. The patient also notes the following associated symptoms, tingling in his face about an hour ago. The patient has took a baby aspirin for relieving factors. Current pain is rated as 4/10. Patient states it feels like heartburn. He notes no change with eating or drinking. 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 He notes no soreness in the chest muscles. Pt denies LOC, headache, fevers, chills, diaphoresis, visual changes, neck pain, breathing difficulties, nausea, vomiting, abdominal pain, back pain, melena, hematochezia, urinary symptoms, numbness, weakness, lymphadenopathy, rash, or other complaints.. PAST MEDICAL HISTORY: See Below, hypertension PAST SURGICAL HISTORY: See Below, SOCIAL HISTORY: See Below, non-smoker HOME MEDICATIONS: See Below ALLERGIES: See Below VITALS: See Below PHYSICAL EXAMINATION: GENERAL: Awake, alert, well-appearing, in no distress HENT: Normocephalic, atraumatic. Oropharynx unremarkable. EYES: Normal conjunctiva. Sclera non-icteric. NECK: Inspection normal. Non-tender. Supple. No nuchal rigidity. FROM. No masses. RESPIRATORY: Clear to auscultation. No wheezes. No rales. Normal respiratory effort. CARDIAC: Normal rate. Normal rhythm. No murmurs. No rubs. Extremities warm and well perfused. Pulses equal. No JVD. GI: Soft, non-distended. No tenderness to palpation. No rebound or guarding. No masses. RECTAL: Deferred. MUSCULOSKELETAL: Atraumatic. Chest examination reveals no tenderness. The back is symmetrical on inspection without obvious abnormality. There is no CVA tenderness to palpation. No joint edema. LOWER EXTREMITIES: Calves are equal size bilaterally and non-tender. No edema. No discoloration. NEURO: Normal sensorium. No sensory or motor deficits noted. SKIN: No rash or jaundice noted. PROCEDURES: none CRITICAL CARE: none OBSERVATION NOTE: none Past Med/Surg History Problem List (Updated 08/14/24 @ 03:57 by Epi Watts MD) Hypertension (Acute) Chest pain (Acute) Status post total left knee replacement Status post right knee replacement Effusion, left knee Disorder of left rotator cuff Medical History Hypertension Surgical History History of total right knee replacement (05/2023) History of colonoscopy History of foot surgery Family History Other No family history of adverse response to anesthesia Social History Smoking Status: Never smoker Second Hand Exposure: No; Do You Dip or Chew Tobacco: No; Hx Alcohol Use: Yes (on the weekends) Alcohol type: beer Hx Substance Use: No Preferred Language: Tajik Communication Ability: Effective [place] Farmer Required: No Beliefs That Will Affect Care: None Current Living Situation: Alone Current Living Situation Comment: Housemate/friend lives with pt Feels Safe at Home: Yes Assistive Devices: Cane, Crutches and Walker Allergies Allergies Allergy/AdvReac Type Severity Reaction Status Date / Time No Known Allergies Allergy Verified 11/27/23 06:48 Home Meds Home Medications Medication Instructions Recorded Confirmed Liposomal Vitamin D 250 mcg PO QAM 04/24/23 12/10/23 Nac 1,000 mg PO MONTHLY 04/24/23 12/10/23 chromium picolinate 200 mcg tablet 200 mcg PO QAM 04/24/23 12/10/23 glycine 500 mg capsule 1,000 mg PO QAM 04/24/23 12/10/23 hydrochlorothiazide 12.5 mg tablet 12.5 mg PO QAM 04/24/23 12/10/23 aspirin 81 mg tablet,delayed 81 mg PO QAM 11/13/23 12/10/23 release (Lorenza Low Dose Aspirin) Previous Rx's Medication Instructions Recorded Wheeled Walker #1 ea 05/28/23 acetaminophen 500 mg tablet 1,000 mg (2 x 500 mg) PO TID pain 11/24/23 (Tylenol Extra Strength) 30 days #180 tabs aspirin 81 mg tablet,delayed 81 mg PO BID 45 days #90 tabs 11/24/23 release (Lorenza Low Dose Aspirin) ketorolac 10 mg tablet 10 mg PO Q6 pain 5 days #20 tabs 11/24/23 ondansetron 4 mg disintegrating 4 mg PO Q8 PRN nausea #20 tabs 11/24/23 tablet sennosides 8.6 mg tablet (Senokot) 8.6 mg PO BID prevent constipation 11/24/23 14 days #28 tabs tamsulosin 0.4 mg capsule (Flomax) 0.4 mg PO DAILY #7 caps 11/24/23 cefadroxil 500 mg capsule 500 mg PO BID 7 days #14 caps 12/07/23 oxycodone 5 mg tablet 5 mg PO Q6 PRN pain #30 tabs 12/10/23 Results & Data (ED) Vital Signs Vital Signs - 24 hr 08/14/24 01:27 08/14/24 01:45 08/14/24 02:26 Temperature 36.5 C Temperature Source Temporal Artery Scan Pulse Rate 75 Pulse Rate [Apical] 65 Pulse Rate from SpO2 Sensor Pulse Rhythm [Apical] Respiratory Rate 20 18 Respiratory Effort / Characteristics Non-Labored Spontaneous Respiratory Depth Normal Respiratory Pattern Blood Pressure 205/106 H Blood Pressure [Right Arm] 184/119 H Blood Pressure Mean 139 Blood Pressure Mean [Right Arm] 140 Blood Pressure Position [Right Arm] Pulse Oximetry 97 97 Oxygen Delivery Method Room Air Room Air Room Air Sepsis Recent Fever Within 48 Hours No Sepsis New/Unexplained Change in Mental Status No Sepsis Action Taken by Nursing No Action Required 08/14/24 02:44 08/14/24 03:00 08/14/24 03:07 Temperature Temperature Source Pulse Rate 62 76 Pulse Rate [Apical] 67 Pulse Rate from SpO2 Sensor 73 Pulse Rhythm [Apical] Regular Respiratory Rate 19 18 Respiratory Effort / Characteristics Non-Labored Spontaneous Respiratory Depth Normal Respiratory Pattern Regular Blood Pressure 169/112 H Blood Pressure [Right Arm] 169/112 H Blood Pressure Mean 131 Blood Pressure Mean [Right Arm] 131 Blood Pressure Position [Right Arm] Semi-fowlers Pulse Oximetry 96 96 Oxygen Delivery Method Room Air Sepsis Recent Fever Within 48 Hours Sepsis New/Unexplained Change in Mental Status Sepsis Action Taken by Nursing 08/14/24 03:30 Temperature Temperature Source Pulse Rate Pulse Rate [Apical] 60 Pulse Rate from SpO2 Sensor Pulse Rhythm [Apical] Regular Respiratory Rate 16 Respiratory Effort / Characteristics Non-Labored Spontaneous Respiratory Depth Normal Respiratory Pattern Regular Blood Pressure Blood Pressure [Right Arm] 152/92 H Blood Pressure Mean Blood Pressure Mean [Right Arm] 112 Blood Pressure Position [Right Arm] Semi-fowlers Pulse Oximetry 96 Oxygen Delivery Method Room Air Sepsis Recent Fever Within 48 Hours Sepsis New/Unexplained Change in Mental Status Sepsis Action Taken by Nursing Laboratory Data 08/14/24 01:38 08/14/24 01:38 Lab Results 08/14/24 Range/Units 01:38 WBC 5.02 (4.8-10.8) K/ul RBC 4.75 (4.70-6.10) M/uL Hgb 15.7 (14.0-18.0) g/dl Hct 45.9 (42.0-52.0) % MCV 96.6 (80.0-100.0) fL MCH 33.1 (25.0-34.0) pg MCHC 34.2 (32.0-36.0) g/dL RDW Std Deviation 46.0 (36.4-46.3) fL RDW Coeff of Rashi 12.8 (11.5-14.5) % Plt Count 176 (130-400) K/uL MPV 9.3 L (9.4-12.4) fL Immature Gran % (Auto) 0.4 % Neut % (Auto) 58.0 % Lymph % (Auto) 24.3 % [place] % (Auto) 13.5 % Eos % (Auto) 3.4 % Baso % (Auto) 0.4 % Neut # (Auto) 2.91 (1.40-6.50) K/uL Lymph # (Auto) 1.22 (1.20-3.40) K/uL [place] # (Auto) 0.68 H (0.11-0.59) K/uL Eos # (Auto) 0.17 (0.00-0.50) K/uL Baso # (Auto) 0.02 (0.00-0.20) K/uL Immature Gran # (Auto) 0.02 (0.01-0.20) K/uL PT 10.7 (9.0-12.0) Seconds INR 1.0 (0.9-1.1) Sodium 137 (136-145) mmol/L Potassium 4.0 (3.5-5.1) mmol/L Chloride 107 (98-107) mmol/L Carbon Dioxide 23 (21-32) mmol/L Anion Gap 7 (3-11) BUN 16 (6-23) mg/dl Creatinine 1.08 (0.6-1.4) mg/dl Est Cr Clr Drug Dosing 80.7 ml/min eGFR 75.21 BUN/Creatinine Ratio 14.8 (10-20) Glucose 96 (70-99(Fasting)) mg/dl Calcium 9.4 (8.6-10.3) mg/dl Total Bilirubin 0.6 (0.2-1.0) mg/dl AST 26 (13-39) U/L ALT 22 (7-52) U/L Alkaline Phosphatase 99 (34-104) U/L Troponin I High Sens 6.3 (0-20) pg/ml Total Protein 7.1 (6.0-8.3) gm/dl Albumin 3.9 (3.4-5.0) gm/dl Globulin 3.2 (2.5-4.0) gm/dl Albumin/Globulin Ratio 1.2 (0.9-2) Lipase 17 (11-82) U/L Administered Medications Discontinued Medications Al Hydrox/Mg Hydrox/Simethicone (Aluminum/Magnesium Susp 30 Ml Udc) 30 ml PO NOW STA Stop: 08/14/24 03:25 Last Admin: 08/14/24 03:29 Dose: 30 ml Documented By: MASHA Aspirin (Aspirin Chew 324 Mg) 243 mg PO NOW STA Stop: 08/14/24 02:59 Last Admin: 08/14/24 03:06 Dose: 243 mg Documented By: MASHA Nitroglycerin (Nitroglycerin Sl 0.4 Mg/Tab Tab) 0.4 mg SL NOW STA Stop: 08/14/24 02:59 Last Admin: 08/14/24 03:06 Dose: 0.4 mg Documented By: MASHA Imaging Data Radiologist's Impression: Chest X-Ray 08/14/24 01:45 EXAM: XR chest 1V portable CLINICAL HISTORY: Chest pain, nonspecific TECHNIQUE: Radiograph of chest was acquired. COMPARISON: none FINDINGS: The lungs are clear and well-expanded with no pulmonary infiltrate or pleural effusion. The cardiomediastinal silhouette is within normal limits. No acute osseous abnormality. IMPRESSION: 1. No acute cardiopulmonary disease. Electronically signed by Edu Wall 08-14-2024 03:36 AM Discharge Plan Visit Data Chief Complaint: Cardiac Assessment Stated Complaint: CHEST PAIN,FACE NUMB,ARM PAIN ED Provider: Epi Watts Discharge Problem: Chest pain, Hypertension Patient Disposition: Home - Self-Care Condition: Good Forms Stand Alone Forms: My [facility], Important Visit Information Prescriptions Prescriptions: No Action (DME) Wheeled Walker Misc See Rx Instructions .MEDSUPPLY Qty: 1 0RF Rx Instructions: As directed acetaminophen [Tylenol Extra Strength] 500 mg tablet 1,000 mg PO TID 30 Days Qty: 180 0RF Rx Instructions: Take 3 times per day to lessen pain. ketorolac 10 mg tablet 10 mg PO Q6 5 Days Qty: 20 0RF Rx Instructions: Take 4 times per day with food for 5 days to lessen pain and swelling. ondansetron 4 mg tablet,disintegrating 4 mg PO Q8 PRN (Reason: nausea) Qty: 20 1RF Rx Instructions: Take as needed for nausea sennosides [Senokot] 8.6 mg tablet 8.6 mg PO BID 14 Days Qty: 28 0RF Rx Instructions: Take two times a day to prevent/treat constipation tamsulosin [Flomax] 0.4 mg capsule 0.4 mg PO DAILY Qty: 7 0RF Rx Instructions: Begin night BEFORE surgery to prevent urinary retention aspirin [Lorenza Low Dose Aspirin] 81 mg tablet,delayed release (DR/EC) 81 mg PO BID 45 Days Qty: 90 0RF Rx Instructions: Take to prevent blood clots. cefadroxil 500 mg capsule 500 mg PO BID 7 Days Qty: 14 0RF Rx Instructions: Take 1 cap twice a day to prevent infection oxycodone 5 mg tablet 5 mg PO Q6 PRN (Reason: pain) Qty: 30 0RF Rx Instructions: Take as needed for pain hydrochlorothiazide 12.5 mg Tablet 12.5 mg PO QAM Nac 1,000 mg PO MONTHLY chromium picolinate 200 mcg Tablet 200 mcg PO QAM glycine 500 mg Capsule 1,000 mg PO QAM Liposomal Vitamin D 250 mcg PO QAM aspirin [Lorenza Low Dose Aspirin] 81 mg tablet,delayed release (DR/EC) 81 mg PO QAM Rx Instructions: Take to prevent blood clots. Referrals Referrals: Shital Renee MD [Primary Care Provider] -
--- NOTE | 2024-08-14 04:24 | History & Physical Report ---
Date of Service August 14, 2024 Assessment & Plan (1) Chest pain: Plan: Assessment and plan below following discussion of case with ED provider and reviewing patient history/pertinent normal/abnormal diagnostic test results. Chest pain Multifactorial: Uncontrolled hypertension Musculoskeletal given reproducibility OBS Admit to PCU Analgesia Add lisinopril to regimen Follow troponin TTE Home in a.m. if patient comfortable and above workup unremarkable. DVT prophylaxis. Lovenox subcu Full code Text document was generated using [employer] voice recognition software. It may contain grammatical or spelling errors. Kindly contact undersigned for clarification of any documentation item in question. History of Present Illness Chief Complaint: Chest pain Primary Care Provider: Shital Renee MD History obtained from patient and records. Medical history significant for hypertension, diverticulosis, osteoarthritis. Last confinement November 2023 under Orthopedics service for elective total knee arthroplasty. Unremarkable postop course. 2 days ago, patient experienced substernal pain somewhat worse on exertion. No cough or shortness of breath. 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 Discomfort relieved by rest. Patient woke up from sleep with recurrent chest pain. Denies headache or SOB symptoms. Compliant with home medications. SBP 200s upon arrival at the ER. Chest discomfort not immediately relieved by aspirin and nitroglycerin administration at the ER. 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 Allergies Allergy/AdvReac Type Severity Reaction Status Date / Time No Known Allergies Allergy Verified 11/27/23 06:48 Home Medications Medication Instructions Recorded Confirmed Type Nac 1,000 mg PO MONTHLY 04/24/23 08/14/24 History chromium picolinate 200 mcg tablet 200 mcg PO QAM 04/24/23 08/14/24 History glycine 500 mg capsule 500 mg PO QAM 04/24/23 08/14/24 History hydrochlorothiazide 12.5 mg tablet 12.5 mg PO QAM 04/24/23 08/14/24 History Wheeled Walker #1 ea 05/28/23 12/10/23 Rx aspirin 81 mg tablet,delayed 81 mg PO QAM 11/13/23 08/14/24 History release (Lorenza Low Dose Aspirin) acetaminophen 500 mg tablet 1,000 mg (2 x 500 mg) PO TID pain 11/24/23 08/14/24 Rx (Tylenol Extra Strength) 30 days #180 tabs Past Med/Surg History Problem List (Updated 08/14/24 @ 03:57 by Epi Watts MD) Hypertension (Acute) Chest pain (Acute) Status post total left knee replacement Status post right knee replacement Effusion, left knee Disorder of left rotator cuff Medical History Hypertension Surgical History History of total right knee replacement (05/2023) History of colonoscopy History of foot surgery Family History Other No family history of adverse response to anesthesia Social History Smoking Status: Never smoker Second Hand Exposure: No; Do You Dip or Chew Tobacco: No; Hx Alcohol Use: Yes (on the weekends) Alcohol type: beer Hx Substance Use: No Preferred Language: [place]orese Communication Ability: Effective Plant Tech Required: No Beliefs That Will Affect Care: None Current Living Situation: Alone Current Living Situation Comment: Housemate/friend lives with pt Feels Safe at Home: Yes Assistive Devices: Cane, Crutches and Walker Review of Systems Review of Systems: As per HPI, all other systems reviewed and negative Physical Exam Physical Exam: GENERAL: Comfortable, pleasant, obese, no respiratory distress SKIN: Normal color, warm HEENT: Partial alopecia, pink palpebral conjunctivae, no ptosis, moist buccal mucosa NECK : Supple, no tenderness CHEST : CTA, anterior chest wall tenderness HEART : RRR, no obvious murmurs ABDOMEN: Some distention, nontender EXTREMITIES : No LE swelling/tenderness, palpable pulses, no other conspicuous deformities noted NEUROLOGIC : Coherent, no facial asymmetry, no other gross focality Results & Data Results & Data Vital Signs (Past 12 Hours) Vital Signs Temp Pulse Pulse Resp BP BP Pulse Ox 08/14/24 03:30 60 16 152/92 H 96 08/14/24 03:07 67 18 169/112 H 96 08/14/24 03:00 76 19 169/112 H 96 08/14/24 02:44 62 08/14/24 02:26 65 18 184/119 H 97 08/14/24 01:45 08/14/24 01:27 36.5 C 75 20 205/106 H 97 O2 Del Method 08/14/24 03:30 Room Air 08/14/24 03:07 Room Air 08/14/24 03:00 08/14/24 02:44 08/14/24 02:26 Room Air 08/14/24 01:45 Room Air 08/14/24 01:27 Room Air Laboratory Results Laboratory Results WBC 5.02 K/ul (4.8-10.8) 08/14/24 01:38 RBC 4.75 M/uL (4.70-6.10) 08/14/24 01:38 Hgb 15.7 g/dl (14.0-18.0) 08/14/24 01:38 Hct 45.9 % (42.0-52.0) 08/14/24 01:38 MCV 96.6 fL (80.0-100.0) 08/14/24 01:38 MCH 33.1 pg (25.0-34.0) 08/14/24 01:38 MCHC 34.2 g/dL (32.0-36.0) 08/14/24 01:38 RDW Std Deviation 46.0 fL (36.4-46.3) 08/14/24 01:38 RDW Coeff of Rashi 12.8 % (11.5-14.5) 08/14/24 01:38 Plt Count 176 K/uL (130-400) 08/14/24 01:38 MPV 9.3 fL (9.4-12.4) L 08/14/24 01:38 Immature Gran % (Auto) 0.4 % 08/14/24 01:38 Neut % (Auto) 58.0 % 08/14/24 01:38 Lymph % (Auto) 24.3 % 08/14/24 01:38 [place] % (Auto) 13.5 % 08/14/24 01:38 Eos % (Auto) 3.4 % 08/14/24 01:38 Baso % (Auto) 0.4 % 08/14/24 01:38 Neut # (Auto) 2.91 K/uL (1.40-6.50) 08/14/24 01:38 Lymph # (Auto) 1.22 K/uL (1.20-3.40) 08/14/24 01:38 [place] # (Auto) 0.68 K/uL (0.11-0.59) H 08/14/24 01:38 Eos # (Auto) 0.17 K/uL (0.00-0.50) 08/14/24 01:38 Baso # (Auto) 0.02 K/uL (0.00-0.20) 08/14/24 01:38 Immature Gran # (Auto) 0.02 K/uL (0.01-0.20) 08/14/24 01:38 PT 10.7 Seconds (9.0-12.0) 08/14/24 01:38 INR 1.0 (0.9-1.1) 08/14/24 01:38 Sodium 137 mmol/L (136-145) 08/14/24 01:38 Potassium 4.0 mmol/L (3.5-5.1) 08/14/24 01:38 Chloride 107 mmol/L (98-107) 08/14/24 01:38 Carbon Dioxide 23 mmol/L (21-32) 08/14/24 01:38 Anion Gap 7 (3-11) 08/14/24 01:38 BUN 16 mg/dl (6-23) 08/14/24 01:38 Creatinine 1.08 mg/dl (0.6-1.4) 08/14/24 01:38 Est Cr Clr Drug Dosing 80.7 ml/min 08/14/24 01:38 eGFR 75.21 08/14/24 01:38 BUN/Creatinine Ratio 14.8 (10-20) 08/14/24 01:38 Glucose 96 mg/dl (70-99(Fasting)) 08/14/24 01:38 Calcium 9.4 mg/dl (8.6-10.3) 08/14/24 01:38 Total Bilirubin 0.6 mg/dl (0.2-1.0) 08/14/24 01:38 AST 26 U/L (13-39) 08/14/24 01:38 ALT 22 U/L (7-52) 08/14/24 01:38 Alkaline Phosphatase 99 U/L (34-104) 08/14/24 01:38 Troponin I High Sens 6.3 pg/ml (0-20) 08/14/24 01:38 Total Protein 7.1 gm/dl (6.0-8.3) 08/14/24 01:38 Albumin 3.9 gm/dl (3.4-5.0) 08/14/24 01:38 Globulin 3.2 gm/dl (2.5-4.0) 08/14/24 01:38 Albumin/Globulin Ratio 1.2 (0.9-2) 08/14/24 01:38 Lipase 17 U/L (11-82) 08/14/24 01:38 Impressions Chest X-Ray 08/14/24 01:45 EXAM: XR chest 1V portable CLINICAL HISTORY: Chest pain, nonspecific TECHNIQUE: Radiograph of chest was acquired. COMPARISON: none FINDINGS: The lungs are clear and well-expanded with no pulmonary infiltrate or pleural effusion. The cardiomediastinal silhouette is within normal limits. No acute osseous abnormality. IMPRESSION: 1. No acute cardiopulmonary disease. Electronically signed by Edu Wall 08-14-2024 03:[address] chest: 1. No evidence of pulmonary embolism 2. Patchy areas of subpleural subsegmental atelectasis is noted involving inferior lingula, right middle lobe and bilateral lower lobes. 3. Patchy areas of mosaic attenuation are also noted involving bilateral lower lobes, likely due to underlying small airway disease. Diagnostic Findings EKG as per my interpretation :Rate 70, NSR, normal axis, no ischemia
[2024-08-14 04:32] LABS: D Dimer 1310 ug/L FEU (0-500)
[2024-08-14] MEDS ORDERED: LORazepam 0.5 MG TAB PO PRN (04:39)
[2024-08-14] MEDS ORDERED: PROMETHAZINE 12.5 MG/50.5 ML BAG IV PRN (04:39)
[2024-08-14] MEDS ORDERED: ACETAMINOPHEN 325 MG TAB PO PRN (04:39)
[2024-08-14] MEDS ORDERED: oxyCODONE HCL IR 5 MG TAB (IMMEDIATE RELEASE) PO PRN (04:39)
[2024-08-14] MEDS: lisinopril 5 MG TAB PO SCH (05:03)
[2024-08-14] MEDS: OPTIRAY 320 125ml IV ONE (05:30)
--- NOTE | 2024-08-14 06:01 | CT Scan Report ---
EXAM: CT angio chest PE protocol CLINICAL HISTORY: cp TECHNIQUE: Contiguous axial images were obtained from the neck base through the upper abdomen following intravenous administration of iodinated contrast material. Angiographic images were processed, 3D MIP images were acquired for interpretation. If IV contrast material had not been administered, the likelihood of detecting abnormalities relevant to the patient's condition would have been substantially decreased. Coronal and sagittal 3-D MIPs were likewise performed and indicated to increase the sensitivity of detectin diffuse clinically relevant pathology. CT scan was performed according to ALARA (as low as reasonable achievable). COMPARISON: None. FINDINGS: Patchy areas of subpleural subsegmental atelectasis is noted involving inferior lingula, right middle lobe and bilateral lower lobes. Patchy areas of mosaic attenuation are also noted involving bilateral lower lobes, likely due to underlying small airway disease. Adequate contrast bolus without evidence of pulmonary embolism. The central airways are patent. No pleural effusion. The heart, aorta, and pulmonary arteries are of normal size and configuration. There are no appreciable coronary artery and aortic atherosclerotic calcifications. No pericardial effusion is identified. The thyroid is unremarkable. No mediastinal, hilar, or axillary lymphadenopathy is noted. No suspicious lytic or sclerotic osseous lesions are identified. IMPRESSION: 1. No evidence of pulmonary embolism 2. Patchy areas of subpleural subsegmental atelectasis is noted involving inferior lingula, right middle lobe and bilateral lower lobes. 3. Patchy areas of mosaic attenuation are also noted involving bilateral lower lobes, likely due to underlying small airway disease. Electronically signed by Edu Wall 08-14-2024 06:00 AM
[2024-08-14 06:10] VITALS: RESP 18
[2024-08-14] MEDS: ASPIRIN 81 MG ECTAB PO SCH (08:47)
[2024-08-14] MEDS: ENOXAPARIN INJ 40 MG/0.4 ML SYR SQ SCH (08:47)
[2024-08-14 12:00] VITALS: BP 150/90; PULSE 60; TEMP 98.2; O2SAT 96
--- NOTE | 2024-08-14 15:10 | Discharge Summary ---
Discharge Summary Date of Service August 14, 2024 Principal Dx & Hospital Course #1 = Principal Diagnosis (1) Chest pain: Assessment and plan below following discussion of case with ED provider and reviewing patient history/pertinent normal/abnormal diagnostic test results. Chest pain Multifactorial: Uncontrolled hypertension Musculoskeletal given reproducibility OBS Admit to PCU Analgesia Add lisinopril to regimen Follow troponin TTE Home in a.m. if patient comfortable and above workup unremarkable. DVT prophylaxis. Lovenox subcu Full code Text document was generated using [employer] voice recognition software. It may contain grammatical or spelling errors. Kindly contact undersigned for clarification of any documentation item in question. Notes For Next Care Provider 68 yo male with pmhx of hypertension, diverticulosis, osteoarthritis presenting for chest pain while doing heavy labor. ADmitted to medicine for chest pain rule out. Troponins WNL x2. Echo revealed EF 55% with diastolic dysfunction, otherwise unremarkable. EKG personally reviewed, no findings concerning for overt ischemia. Tenderness to palpation on chest wall strongly suggestive of costochondritis. ON 08/14/2024 patient medically stable for discharge home. To do: [ ] f/u with cardiology outpatient Medication Changes From Visit -see below Admission HPI Per Admitting Provider History obtained from patient and records. Medical history significant for hypertension, diverticulosis, osteoarthritis. Last confinement November 2023 under Orthopedics service for elective total knee arthroplasty. Unremarkable postop course. 2 days ago, patient experienced substernal pain somewhat worse on exertion. No cough or shortness of breath. 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 Discomfort relieved by rest. Patient woke up from sleep with recurrent chest pain. Denies headache or SOB symptoms. Compliant with home medications. SBP 200s upon arrival at the ER. Chest discomfort not immediately relieved by aspirin and nitroglycerin administration at the ER. 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 External ears normal. No rhinorrhea. Moist mucous membranes. Neck: Supple, full range of motion, no observable masses, No meningeal sign. Lungs: No Respiratory distress. CV: RRR, no edema. Abdomen: Soft, nondistended, No rebound tenderness. MSK: No joint swelling, no redness. Skin: No rashes, petechiae, lesions. Normal color per patient. Neuro: Normal Gait, Grossly intact. Psych: Appropriate for situation. Updated Medication List Medication Instructions Recorded Confirmed Type Wheeled Walker #1 ea 05/28/23 12/10/23 Rx aspirin 81 mg tablet,delayed 81 mg PO QAM 11/13/23 08/14/24 History release (Lorenza Low Dose Aspirin) acetaminophen 500 mg tablet 1,000 mg (2 x 500 mg) PO TID pain 11/24/23 08/14/24 Rx (Tylenol Extra Strength) 30 days #180 tabs diclofenac sodium 1 % topical gel 2 g topical QID chest pain #50 08/14/24 Rx (Voltaren Arthritis Pain) grams lisinopril 20 1 tab PO DAILY #30 tabs 08/14/24 Rx mg-hydrochlorothiazide 25 mg tablet Hospital Stay Data Consultations 08/14/24 04:47 ED Decision to Admit Stat Diagnostic Imagining Performed 08/14/24 04:35 CT angio chest PE protocol Stat Pending Results Patient Have Any Pending Studies at Discharge: No Discharge Instructions Given to Patient (Per Discharging Provider) 1. FOllow up with PCP and cardiology. 2. Take medications as prescribed. Total Time Total Time Spent Total Time Spent (In Minutes): I spent a total of 35 minutes in direct patient care, including [id number] time with the patient and/or family, reviewing medical records, ordering and reviewing diagnostic tests, and coordinating care with other healthcare providers. This time includes: history taking, physical examination, medical decision making, counseling, ECG interpretation, imaging interpretation, lab interpretation, orders, and education, excluding time spent in the performance of separately billed services.
--- NOTE | 2024-08-15 06:26 | Electrocardiogram Report ---
Test Reason : Blood Pressure : */* mmHG Vent. Rate : 70 BPM Atrial Rate : 70 BPM P-R Int : 160 ms QRS Dur : 102 ms QT Int : 396 ms P-R-T Axes : 53 40 35 degrees QTcB Int : 427 ms Normal sinus rhythm with sinus arrhythmia Normal ECG When compared with ECG of 07-May-2023 10:35, Questionable change in QRS axis Confirmed by Travis Vines ([id number]) on 08/15/2024 6:26:02 AM Referred By: REFERRED SELF Confirmed By: Travis Vines
== END 2024-08-14 15:15 | disposition home or self-care (01) ==
LOC: ED 01:25 → 4W 01:25 → SUATTDRO 04:25 → 4W 05:13